=== PATIENT | male | born 1945 | race Caucasian/White ===

== ENCOUNTER 2017-06-20 13:26 | Day surgery (SDC) | payer MEDICARE ==
[2017-06-20 13:58] VITALS: BP 119/64; TEMP 97.6
[2017-06-20] MEDS ORDERED: Ondansetron HCl/PF 4 MG/2 ML Vial SLOW IVP SCH (14:00)
[2017-06-20] MEDS ORDERED: Pemetrexed 1,000 MG in Sodium Chloride 0.9% 60 ML IVPB SCH (14:00)
[2017-06-20] MEDS ORDERED: Sodium Chloride 0.9% 30 ML ONE (14:08)
== END 2017-06-20 15:57 | disposition home or self-care (01) ==
LOC: ONC/OP 13:26
PROVIDERS: ATTEND Internal Medicine Hematology & Oncology
DX: Z51.11 Encounter for antineoplastic chemotherapy (principal); C34.90 Malignant neoplasm of unspecified part of unspecified bronchus or lung; K21.9 Gastro-esophageal reflux disease without esophagitis; I25.2 Old myocardial infarction; J44.9 Chronic obstructive pulmonary disease, unspecified; Z88.5 Allergy status to narcotic agent; Z87.891 Personal history of nicotine dependence; Z79.52 Long term (current) use of systemic steroids; Z79.899 Other long term (current) drug therapy; Z98.890 Other specified postprocedural states
CPT/HCPCS: 96375; 96413; A4216; J2405; J7050; J9305

== ENCOUNTER 2017-07-18 12:40 | Day surgery (SDC) | payer MEDICARE ==
[2017-07-18] MEDS ORDERED: Sodium Chloride 0.9% 40 ML ONE (12:54)
[2017-07-18] MEDS ORDERED: ADMIXTURE FEE IVPB SCH ×2 (13:00→13:15)
[2017-07-18] MEDS ORDERED: SODIUM CHLORIDE IVPB SCH ×2 (13:00→13:15)
[2017-07-18] MEDS ORDERED: PEMETREXED IVPB SCH ×2 (13:00→13:15)
[2017-07-18] MEDS ORDERED: Ondansetron HCl/PF 4 MG/2 ML Vial IVP SCH (13:00)
[2017-07-18] MEDS ORDERED: Cyanocobalamin 1000 MCG/ML VIAL SC SCH (13:00)
== END 2017-07-18 15:40 | disposition home or self-care (01) ==
LOC: ONC/OP 12:40
PROVIDERS: ATTEND Internal Medicine Hematology & Oncology
DX: Z51.11 Encounter for antineoplastic chemotherapy (principal); C34.90 Malignant neoplasm of unspecified part of unspecified bronchus or lung; C79.71 Secondary malignant neoplasm of right adrenal gland; C77.2 Secondary and unspecified malignant neoplasm of intra-abdominal lymph nodes; C79.89 Secondary malignant neoplasm of other specified sites; K21.9 Gastro-esophageal reflux disease without esophagitis; E53.9 Vitamin B deficiency, unspecified; J44.9 Chronic obstructive pulmonary disease, unspecified; I25.2 Old myocardial infarction; Z79.01 Long term (current) use of anticoagulants; Z79.899 Other long term (current) drug therapy; Z88.5 Allergy status to narcotic agent; Z87.891 Personal history of nicotine dependence
CPT/HCPCS: 80053; 82248; 83615; 84100; 84550; 96372; 96375; 96413; A4216; J1642; J2405; J3420; J7050; J9305

== ENCOUNTER 2017-08-15 14:12 | Day surgery (SDC) | payer MEDICARE ==
[2017-08-15] MEDS ORDERED: Ondansetron 2MG/ML MDV 10 MG in Sodium Chloride 0.9% 50 ML IVP SCH (14:45)
[2017-08-15] MEDS ORDERED: Dexamethasone 4 MG TAB PO SCH (14:45)
[2017-08-15] MEDS ORDERED: Pemetrexed 1,000 MG in Sodium Chloride 0.9% 60 ML IVPB SCH (14:45)
[2017-08-15 15:01] VITALS: BP 110/58; TEMP 97.6
== END 2017-08-15 18:22 | disposition home or self-care (01) ==
LOC: ONC/OP 14:12
PROVIDERS: ATTEND Internal Medicine Hematology & Oncology
DX: Z51.11 Encounter for antineoplastic chemotherapy (principal); C34.90 Malignant neoplasm of unspecified part of unspecified bronchus or lung; C79.71 Secondary malignant neoplasm of right adrenal gland; C77.2 Secondary and unspecified malignant neoplasm of intra-abdominal lymph nodes; K21.9 Gastro-esophageal reflux disease without esophagitis; I25.2 Old myocardial infarction; J44.9 Chronic obstructive pulmonary disease, unspecified; Z88.5 Allergy status to narcotic agent; Z79.899 Other long term (current) drug therapy; Z98.890 Other specified postprocedural states; Z80.1 Family history of malignant neoplasm of trachea, bronchus and lung
CPT/HCPCS: 96375; 96413; J2405; J7050; J8540; J9305

== ENCOUNTER 2017-09-09 08:31 | Outpatient (CLI) | payer MEDICARE ==
--- NOTE | 2017-09-09 12:24 | CT ---
CONTRAST ENHANCED CT IMAGES CHEST: COMPARISON: Comparison is made to previous biopsy CT of the right kidney from biopsy from 01/10/14. Comparison co ntrast-enhanced CT of the chest is not available otherwise. FINDINGS: Contrast-enhanced CT of the chest demonstrates a right jugular MediPort catheter in place. ACDF plat es and screws seen in the lower cervical spine. Extensive emphysematous changes seen in both upper lobes. Some emphysematous change is also seen in both lung bases. The mediastinum is unremarkable. Coronary artery calcifications are seen. No significant evidence of pulmonary parenchymal metastases seen. Small areas of nodular pleural calcifications are seen in the left lung base. The spleen contains some splenic calcifications compatible with granulomas. There is an approximately 1.4 x 1.0 cm area of soft tissue partial enhancement in the posterior aspec t of the gallbladder. This may represent possible gallbladder mass. A prominent cystic artery is se en. The liver is otherwise unremarkable. Extensive heterogeneity is seen in the upper pole of the right kidney compatible with a right renal mass. Please see biopsy of this area from 01/08/14. There is al so an approximately 3.4 x 3.4 cm area of heterogeneity involving the left adrenal gland. This was no t present on the previous comparison CT and may represent a newly developed left adrenal mass. IMPRESSION: 1. Newly developed left adrenal mass. 2. Area of soft tissue density along the posterior aspect of the gallbladder concerning for possible gallbladder neoplasm. 3. Continued area of soft tissue density in the upper pole of the right kidney possibly representing a right renal lesion. 4. Left lung base pleural-based area of lung calcification with soft tissue component seen on image E52 of the left lung base. 5. Ill-defined soft tissue lesion in the left upper lobe posterolaterally, diameter measuring approx imately 11 mm seen on image #41. POS: [facility]
[2017-09-09] MEDS ORDERED: Iopamidol 370 76% 100 ML VIAL ONE (12:57)
== END 2017-09-09 08:32 | disposition home or self-care (01) ==
LOC: CT 08:31
PROVIDERS: ATTEND Internal Medicine Hematology & Oncology
DX: C34.90 Malignant neoplasm of unspecified part of unspecified bronchus or lung (principal); J98.4 Other disorders of lung; E27.8 Other specified disorders of adrenal gland
CPT/HCPCS: 71260; 82565

== ENCOUNTER 2017-09-12 12:48 | Day surgery (SDC) | payer MEDICARE ==
[2017-09-12] MEDS ORDERED: Sodium Chloride 0.9% 40 ML ONE (12:57)
[2017-09-12 13:03] VITALS: BP 142/69; TEMP 97.5
[2017-09-12] MEDS ORDERED: ADMIXTURE FEE IVPB SCH ×2 (13:15)
[2017-09-12] MEDS ORDERED: Ondansetron HCl/PF 4 MG/2 ML Vial IVP SCH (13:15)
[2017-09-12] MEDS ORDERED: SODIUM CHLORIDE IVPB SCH ×2 (13:15)
[2017-09-12] MEDS ORDERED: PEMETREXED IVPB SCH ×2 (13:15)
== END 2017-09-12 14:25 | disposition home or self-care (01) ==
LOC: ONC/OP 12:48
PROVIDERS: ATTEND Internal Medicine Hematology & Oncology
DX: Z51.11 Encounter for antineoplastic chemotherapy (principal); C34.90 Malignant neoplasm of unspecified part of unspecified bronchus or lung; R11.2 Nausea with vomiting, unspecified; E53.9 Vitamin B deficiency, unspecified; J44.9 Chronic obstructive pulmonary disease, unspecified; I25.2 Old myocardial infarction; K21.9 Gastro-esophageal reflux disease without esophagitis; Z88.5 Allergy status to narcotic agent
CPT/HCPCS: 96375; 96413; A4216; J1642; J2405; J7050; J9305

== ENCOUNTER 2017-09-26 08:27 | Outpatient (CLI) | payer MEDICARE ==
--- NOTE | 2017-09-26 15:07 | PET ---
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 COMPARISON: Prior PET CT evaluation dated 01/26/[address] of the chest dated 09/09/17. TECHNIQUE: PET CT images were obtained from the skull base through the mid thigh after administration of 16.56 m Ci of F18-FDG IV. CT images were obtained for attenuation correction purposes only. FINDINGS: Biodistribution for the examination is acceptable. HEAD AND NECK: No hypermetabolic lymphadenopathy or mass is seen within the head and neck region. There is some mil d uptake seen within the salivary glands which is likely related to background activity. THORAX: No hypermetabolic lymphadenopathy, pulmonary nodule, or pleural effusion is demonstrated. There is a small sub-4 mm pulmonary nodule left upper lobe that has been stable since 2014. There is severe em physema. ABDOMEN AND PELVIS: The hypermetabolic mass involving the right adrenal gland is smaller than on the comparison of 2013. The lesion now measures 9.6 cm and the peak SUV uptake of 17.0 for a mean uptake of 12.78. The maxi mum uptake on the prior exam was 6.36 with a mean value of 5.5. There is a new lesion involving the medial limb of the left adrenal gland measuring 3.4 cm with a max imum uptake of 7.86 and a mean uptake of 3.98. The previously seen retroperitoneal hypermetabolic masses noted on the prior PET examination are no l onger demonstrated. There is calcified granuloma within the spleen. There are also layered densitie s within the gallbladder. SKIN AND OSSEOUS STRUCTURES: No hypermetabolic skin or osseous lesion is identified. IMPRESSION: Abnormal PET CT. 1. Previously seen hypermetabolic lymphadenopathy within the posterior mediastinum and retroperitone um have resolved since the comparison in 2013; however, there has been interval development of a hype rmetabolic lesion now within the medial limb of the left adrenal gland. The previously seen hypermet abolic mass involving the right adrenal gland has decreased in size since 2014 but does demonstrate m ore avid FDG uptake as indicated in the report. 2. Cholelithiasis and findings of prior granulomatous disease. 3. Emphysema. POS: [facility]
== END 2017-09-26 08:28 | disposition home or self-care (01) ==
LOC: PET 08:27
PROVIDERS: ATTEND Internal Medicine Hematology & Oncology
DX: C34.90 Malignant neoplasm of unspecified part of unspecified bronchus or lung (principal); J43.9 Emphysema, unspecified; K80.20 Calculus of gallbladder without cholecystitis without obstruction; D71 Functional disorders of polymorphonuclear neutrophils; E27.8 Other specified disorders of adrenal gland
CPT/HCPCS: 78815; A9552

== ENCOUNTER 2018-02-06 12:16 | Outpatient (CLI) | payer MEDICARE ==
--- NOTE | 2018-02-06 16:24 | PET ---
PET CT FROM SKULL BASE THROUGH MID THIGHS: INDICATION: History of lung cancer and metastatic disease. COMPARISON: Prior PET CT dated 09/26/17. TECHNIQUE: Multiple PET CT images were obtained from the skull base through the mid thighs following IV administ ration of 11.4 mCi F18-FDG IV. CT images were obtained for attenuation correction purposes only. FINDINGS: The biodistribution for the examination appears acceptable. Head/Neck: No hypermetabolic lymphadenopathy or mass is identified. Thorax: No hypermetabolic pulmonary nodule or pleural effusion is evident. There is severe emphysema. There a re new areas of reticulonodularity within the right upper lobe, best seen on axial CT image 94. These have some mild increased activity related to them, but none are hypermetabolic. There is scattered s carring throughout both lungs. No hypermetabolic lymphadenopathy is seen within the mediastinum, anny r, or axillary regions. Abdomen/Pelvis: The right adrenal mass is smaller, now measuring 3.6 cm in its greatest axial dimension, whereas prev iously the mass measured 9.6 cm and now measures 3.6 cm. No hypermetabolic activity is associated wit h the mass. There has been resolution of the hypermetabolic activity involving the left adrenal body seen on the prior exam. There is a residual nodule noted within the left adrenal body measuring 1.5 c m. No new hypermetabolic lymphadenopathy or mass is identified. There are layered gallstones within t he gallbladder. There are calcified granulomas within the spleen. No malignant ascites is present. Skin/Osseous Structures: No hypermetabolic skin or osseous lesion is evident. IMPRESSION: 1. Findings consistent with response to therapy. There has been resolution of the hypermetabolic act ivity involving the bilateral adrenal masses. No hypermetabolic lymphadenopathy is evident. No hyperm etabolic pulmonary nodules are demonstrated. 2. New reticulonodular opacities within the right upper lobe without associated hypermetabolic activ ity. Findings are suspicious for bronchiolitis; however, early metastatic disease cannot be entirely excluded. Would recommend short-term CT follow-up to document resolution. CODE T. POS: [facility]
== END 2018-02-06 12:17 | disposition home or self-care (01) ==
LOC: PET 12:16
PROVIDERS: ATTEND Internal Medicine Hematology & Oncology
DX: C34.90 Malignant neoplasm of unspecified part of unspecified bronchus or lung (principal); E27.9 Disorder of adrenal gland, unspecified; R91.8 Other nonspecific abnormal finding of lung field
CPT/HCPCS: 78815; A9552

== ENCOUNTER 2018-05-27 15:20 | Emergency (ER) | payer MEDICARE ==
[2018-05-27] MEDS ORDERED: Morphine 4 MG/ML VIAL ONE (16:14)
[2018-05-27] MEDS ORDERED: cefTRIAXone\\ROCEPHIN 1 GM VIAL ONE (16:14)
[2018-05-27 17:29] LABS: Bilirubin Negative (Negative); Blood, Urine Large (Negative); Clarity CLEAR (Clear); Glucose, Urine (Dipstick) Negative (Negative); Leukocyte Trace (Negative); Nitrite Negative (Negative); Protein, Urine (Dipstick) 30 mg/dL (Neg-Trace); Specific Gravity, Urine 1.013 (1.002-1.036); Urobilinogen 0.2 mg/dL (0.2-1.0)
[2018-05-27 17:34] LABS: Bacteria/HPF None Seen HPF (None Seen); Hyaline Casts/LPF 0-3 HYALINE CAST LPF (0-3 Hyaline); Pathc Cast-AUWi Flag 0.43 (0-2.49); RBC/HPF GREATER THAN 50-TNTC HPF (0-3); Squamous Epithelial 0-3 HPF (0-3)
[2018-05-27 17:41] LABS: Amphetamine Not Detected (NotDetected); Barbiturates Screen Not Detected (NotDetected); Benzodiazepine Screen Not Detected (NotDetected); Cocaine Metabolite Screen Not Detected (NotDetected); Medtox Control Line Valid? VALID (VALID); Medtox Reader # READER 4; Methadone Not Detected (NotDetected); Methamphetamine Not Detected (NotDetected); Opiate Screen Not Detected (NotDetected); Oxycodone Screen Not Detected (NotDetected); Phencyclidine (PCP) Not Detected (NotDetected); THC/Cannabinoid Screen Not Detected (NotDetected); Tricyclic Screen Not Detected (NotDetected)
[2018-05-27 18:00] LABS: Crystals/HPF None Seen HPF (Negative); Oval Fat Bodies/HPF None Seen HPF (None Seen); Renal Epithelial 0-3 HPF (0-3); Transitional Epithelial NONE SEEN HPF (0-3); Trichomonas/HPF None Seen HPF (None Seen)
--- NOTE | 2018-05-28 05:01 | CON ---
DATE OF CONSULTATION: 05/27/2018 HISTORY OF PRESENT ILLNESS: The patient was consulted for urinary retention and unable to place a catheter. The patient was transferred from an outside facility for stricture or cause for this being an acute retention. The patient had this 4 years ago, had a similar procedure done at [facility] and then ultimately has his own urologist, Dr. Almanza at [facility]. He has been on tamsulosin and finasteride for several years and has been screened for prostate cancer where he had concerns for this previously. He has not had any concerns for urinary tract infection or blood in the urine recently. He has no history of stones. PAST MEDICAL HISTORY: Metastatic lung can, coronary artery disease with an PA in 2008, hypertension, high cholesterol, GERD. PAST SURGICAL HISTORY: Surgeries include neck fusion, bilateral inguinal hernias, and cardiac stent in 2008, port MEDICATIONS: Include: 1. Tamsulosin. 2. Finasteride. 3. Simvastatin. 4. Omeprazole. 5. Xarelto. 6. Multivitamin. 7. Vitamin C. 8. Vitamin B12. 9. He is also receiving chemotherapy for his metastatic lung cancer ALLERGIES: CODEINE, HE SAYS IT HALLUCINATES. REVIEW OF SYSTEMS: Reveals he had a colonoscopy in 2013 that showed polyps, so it is likely due again. He does have trouble with his bowels, but is not currently constipated. He has some intermittent shortness of breath, not anything currently. No chest pain. No nausea or vomiting. He has abdominal pain in the abdomen just because of not being able to urinate. It was not bloody until after they attempted catheters. SOCIAL HISTORY: Reveals he quit smoking 25 years ago and prior had 20- to 30- year pack history. He drinks beer, but not daily. He uses no other drugs. FAMILY HISTORY: Mother of lung cancer at 87. Father of metastatic lung cancer at 83, both smoked. PHYSICAL EXAMINATION: GENERAL: He is uncomfortable in the bed, so actually did the procedure to get the catheter in prior to doing the history and physical. HEENT: He has poor dentition. Concerns for slight jaundice in color. VITAL SIGNS: Temperature 97.8, heart rate 102, blood pressure 98/71, respiratory rate 20, saturating 96% on room air. HEART: Regular rate and rhythm. No murmurs, gallops, or rubs. LUNGS: Clear to auscultation with fine rhonchi noted intermittently. The port was noted under his gaunt chest skin. ABDOMEN: Soft, nondistended, nontender with normoactive bowel sounds. GENITALS: Testes were descended bilaterally without masses. Phallus was circumcised without lesions. There was significant blood all around it. He had no left lower extremity edema compared to right and this has been unchanged for sometime. Procedure was required in order to place the catheters, so he was prepped using an 18-Nepalese flexible cystoscope. Significant trauma was noted in false passages and then I had to backup again and see a very small stricture that was noted. Next, a false passage and wire were able to get beyond the stricture and into the bladder and then this was dilated using Bard urethral dilators intermittently from 10- Nepalese to 22-Nepalese, and then an 18-Nepalese catheter was placed over the wire without difficulty for yellow urine return. This was sent for specimen. This was secured to the patient's leg and the knee was cleaned. LABORATORY VALUES: Reveals H and H of 12.7 and 39.0 with a normal WBC of 9.0, and platelets of 167. His coags were not checked. His chemistry reveals a creatinine of 1.22 and his baseline is around 1 and he has PSA from 2014 that was 1.07. Urine from 2014 had wbc's and rbc's, but no bacteria, so I suspect this is when they were also placing the catheter for retention and stricture. I have no imaging. ASSESSMENT: We have a 72-year-old male with urinary retention secondary to urethral stricture, which is recurrent. We reviewed how he can follow up with Dr. Almanza, but I would not removed the catheter for at least 7 days. I would continue tamsulosin and finasteride, and I do recommend adequate hydration and a course of antibiotics. He will call Dr. Almanza's office tomorrow to come up with the plan. Job ID: [id number] [facility]
== END 2018-05-27 18:08 | disposition home or self-care (01) ==
LOC: ERS 15:20
DX: N13.9 Obstructive and reflux uropathy, unspecified (principal); Z87.891 Personal history of nicotine dependence
CPT/HCPCS: 51702; 80306; 81003; 81015; 96365; 96375; J0696; J2270

== ENCOUNTER 2018-07-17 09:35 | Outpatient (CLI) | payer MEDICARE ==
--- NOTE | 2018-07-17 12:25 | PET ---
PET CT: COMPARISON: PET CT dated 02/06/18 and 09/26/17. CT chest dated 09/09/17 and 06/16/15. HISTORY: Lung cancer. History of retroperitoneal and adrenal masses\. TECHNIQUE: A PET CT was performed from skull base through the mid thigh after administration of 12.1 mCi of F18- FDG. FINDINGS: No suspicious areas of hypermetabolic activity are seen within the chest. The previously seen area of tree-in-bud opacity in the right upper lobe has resolved and likely represented a bronchiolitis. No hypermetabolic or suspicious activity is seen in the neck or chest. The previously seen left adrenal nodule has significantly decreased in size and is no longer hypermet abolic. The previously seen mass involving the right adrenal gland and right kidney is still present and difficult to fully discriminate from the kidney without IV contrast. Hypermetabolic activity is s een in the upper pole of the right kidney, but this could represent normal renal function versus resi dual disease. However, residual disease in this location cannot be excluded as the max SUV value in t his region is 12.4. No other suspicious areas of hypermetabolic activity are seen within the abdomen or pelvis. No suspic ious areas of hypermetabolic activity are seen within the skeleton. CT images used for attenuation correction shows a gallstone in the gallbladder. There are calcified g ranulomas in the spleen. Atherosclerotic calcifications are seen in the aorta. IMPRESSION: The right adrenal/renal lesion involving the upper pole of the right kidney is still present on the n onattenuating corrected images. Hypermetabolic activity is still seen in this region. This could repr esent normal hypermetabolic activity in the kidney or a lesion involving the residual disease in this location involving the adrenal gland and right kidney. POS: [facility]
== END 2018-07-17 09:36 | disposition home or self-care (01) ==
LOC: PET 09:35
PROVIDERS: ATTEND Internal Medicine Hematology & Oncology
DX: C34.90 Malignant neoplasm of unspecified part of unspecified bronchus or lung (principal); R94.8 Abnormal results of function studies of other organs and systems
CPT/HCPCS: 78815; A9552

== ENCOUNTER 2018-09-22 12:36 | Observation (INO) | payer MEDICARE ==
[~2018-09-22 12:36] MED LIST: ISOVUE-370 76%-LOCM 1 ML ONE
[2018-09-22 13:15] LABS: #Basophils 0.1 thou/uL (0.0-0.2); #Eosinphils 0.5 thou/uL (0.0-0.7); #Lymphocytes 3.6 thou/uL (1.20-3.40); #Monocytes 1.3 thou/uL (0.11-0.59); #Neutrophils 10.6 thou/uL (1.40-6.50); %Basophils 0.7 % (0.0-1.0); %Eosinophils 3.2 % (0.0-10.0); %Lymphocytes 22.1 % (21.0-51.0); %Monocytes 8.1 % (0.0-10.0); Hemoglobin 12.4 g/dL (14.0-18.0); Mean Corpuscular HGB CONC 32.1 g/dL (32.0-36.0); Mean Corpuscular Hemoglobin 27.9 pg (27.0-31.0); Mean Corpuscular Volume 87.1 fL (78.0-98.0); Mean Platelet Volume 8.4 fL (7.4-10.4); Platelet Count 245 thou/uL (130-400); RBC Distribution Width 14.8 % (11.5-14.5); Red Blood Cell (RBC) Count 4.45 mill/uL (4.70-6.10); White Blood Cell (WBC) Count 16.1 thou/uL (4.8-10.8)
[2018-09-22] MEDS ORDERED: Ondansetron PF 4 MG/2 ML Vial ONE (13:31)
[2018-09-22] MEDS ORDERED: Morphine 4 MG/ML VIAL ONE (13:31)
[2018-09-22 13:38] LABS: Anion Gap 15 mmol/L (10-20); BUN (Urea Nitrogen) 28 mg/dL (8.4-25.7); Calc. Creatinine Clearance 0 mL/min (70-130); Calcium 8.9 mg/dL (7.8-10.44); Carbon Dioxide 21 mmol/L (23-31); Chloride 100 mmol/L (98-107); Estimated GFR-MDRD 54; Glucose 93 mg/dL (83-110); Potassium 4.4 mmol/L (3.5-5.1); Sodium 132 mmol/L (136-145)
[2018-09-22 14:35] LABS: Bilirubin Negative (Negative); Blood, Urine Large (Negative); Clarity TURBID (Clear); Glucose, Urine (Dipstick) Negative (Negative); Leukocyte Small (Negative); Nitrite Negative (Negative); Protein, Urine (Dipstick) 100 mg/dL (Neg-Trace); Specific Gravity, Urine 1.021 (1.002-1.036); Urobilinogen 0.2 mg/dL (0.2-1.0)
[2018-09-22 14:36] LABS: Pathc Cast-AUWi Flag 2.12 (0-2.49); RBC/HPF GREATER THAN 50-TNTC HPF (0-3)
[2018-09-22 14:42] LABS: Hyaline Casts/LPF 0-3 HYALINE CAST LPF (0-3 Hyaline); Renal Epithelial None Seen HPF (0-3); Transitional Epithelial NONE SEEN HPF (0-3)
[2018-09-22 14:43] LABS: Bacteria/HPF 2+ HPF (None Seen)
[2018-09-22] MEDS ORDERED: Ondansetron PF 4 MG/2 ML Vial IVP PRN (14:57)
[2018-09-22] MEDS ORDERED: Bisacodyl 10 MG SUPP PR PRN (14:57)
[2018-09-22] MEDS ORDERED: Senokot S 8.6-50 MG TAB PO PRN (14:57)
[2018-09-22] MEDS ORDERED: Guaifenesin DM 100-10/5 ML UDCUP PO PRN (14:57)
[2018-09-22] MEDS ORDERED: cefTRIAXone\\ROCEPHIN 2 GM VIAL ONE (15:41)
[2018-09-22 16:27] VITALS: BMI 20.7
[2018-09-22] MEDS: Sodium Chloride 0.9% 1,000 ML IV SCH (17:06)
--- NOTE | 2018-09-22 17:06 | HP ---
REASON FOR ADMISSION: Hematuria. HISTORY OF PRESENTING ILLNESS: The patient gives history of noticing blood running down his legs when he was trying to pass urine in the bathroom this morning. He normally does self catheterization 2 times a day. He managed to do it and emptied his bladder, but had bloody urine. There was also clots in it. He states he has been taking Xarelto for the last 5 years, for risk of clots with history of renal tumor. He mentions that he has been off chemo and immunotherapy from last 4 months as the tumor spread. He is currently on a carbohydrate-restricted diet along with beet juice, iodine tablets, and Restart powder, for which he is seeing Lee Valverde for holistic therapy of his cancer. No complaints of fever. No history of increased frequency of urination yesterday. No cough or expectoration. Lives with his . Ambulates with a walker. PAST MEDICAL AND SURGICAL HISTORY: 1. History of adenoca lung with adrenal mets. The patient has been on octiva and finally Opdivo, none of which apparently has helped him. He was also on [place]-based chemotherapy initially. 2. Coronary artery disease with prior stent, bilateral inguinal hernia repair, cervical spine surgery. A cardiac stent was placed 12 years ago. He is on Xarelto for the last 5 years for risk of DVT with history of ?kidney tumor. The patient had a PET scan done in June of 2018, which showed right adrenal/renal lesion involving upper pole of the right kidney is still present. There is a MediPort placed in August 2015 for history of lung cancer. Adenocarcinoma lung with metastasis to right adrenal gland and retroperitoneal lymph node. CURRENT MEDICATIONS: The patient takes; 1. Xarelto 15 mg p.o. daily. 2. Proscar 5 mg daily. 3. Flomax 0.4 mg twice daily. 4. Lugol's iodine tablet daily. 5. Vitamin C daily. 6. B12 daily. 7. Iron tablets daily. 8. Drinks green tea along with [employer] multivitamin tab. The patient goes to [facility] at [place]. ALLERGIES: TO CODEINE. PERSONAL HISTORY: Quit smoking 15 years back prior to which has smoked 1 pack a day for nearly 40 years. Does not abuse alcohol or drugs. Lives with his . FAMILY HISTORY: Mother at the age of 87 years. Father at the age of 83 years. He has had history of lung cancer with metastasis to brain. The patient normally ambulates with a walker. CODE STATUS: Full. Power of assistant city attorney is his . REVIEW OF SYSTEMS: CONSTITUTIONAL: Negative for weight loss or gain, ability to conduct usual activities. SKIN: Negative for rash, itching. EYES: Negative for double vision, pain. ENT/MOUTH: Negative for nose bleeding, neck stiffness, pain, tenderness. CARDIOVASCULAR: Negative for palpitations, dyspnea on exertion, orthopnea. RESPIRATORY: Negative for shortness of breath, wheezing, cough, hemoptysis, fever or night sweats. GASTROINTESTINAL: Negative for poor appetite, abdominal pain, heartburn, nausea , vomiting, constipation, or diarrhea. GENITOURINARY: Negative for urgency, frequency, dysuria, nocturia. MUSCULOSKELETAL: Negative for pain, swelling. NEUROLOGIC/PSYCHIATRIC: Negative for anxiety, depression. ALLERGY/IMMUNOLOGIC: Negative for skin rash, bleeding tendency. PHYSICAL EXAMINATION: GENERAL: The patient is a 73-year-old male, who is currently not in any acute distress. VITAL SIGNS: Blood pressure 124/76, pulse 100 per minute, respiratory rate 18 per minute, temperature 98 degrees Fahrenheit, and saturating 96% on room air. NECK: Supple. No elevated JVD. HEENT: Eyes; extraocular muscles intact. Pupils reacting to light. Oral cavity, mucous membranes are dry. No exudates or congestion. CARDIOVASCULAR SYSTEM: S1-S2 heard. Regular rhythm. RESPIRATORY SYSTEM: Air entry 1+ bilateral. No rales or rhonchi. ABDOMEN: Soft. Bowel sounds heard. He has right lower quadrant abdominal mass , which is tender to palpation. No rigidity or guarding, has localized tenderness in the right lower quadrant. EXTREMITIES: No peripheral edema or calf tenderness. VASCULAR SYSTEM: Peripheral pulses 1+ bilateral. No ischemic ulcerations or gangrene. CENTRAL NERVOUS SYSTEM: No gross focal deficits noted. The patient is alert, awake, and oriented well. PSYCHIATRIC SYSTEM: The patient's mood is euthymic. No hallucinations or delusions. LABORATORY DATA: White count of 16, H and H 12 and 38, and platelet count 245, with 66% neutrophils. Serum bicarb 21, BUN 28, and creatinine 1.3. CLINICAL IMPRESSION AND PLAN: The patient will be under observation on medical floor for hematuria. He is also on Xarelto, which will be held. The last dose he took was yesterday evening. He does self catheterization 2 times a day and it is unclear if he has any catheter related injury. Also, the patient has known metastasis to his adrenal glands from his lung cancer, adenocarcinoma of lung. It is unclear if this has grown and caused the bleeding. We will obtain consultation with Dr. Archie Duran, his urologist. He will be gently hydrated with normal saline. He has had a Aguayo catheter placed and likely will have bladder irrigation per Urology advice. We will hold the Xarelto for now. We will continue his Proscar and Flomax for now. The patient has been taking Lugol's iodine from last month and a half and we will obtain free T3, free T4 and TSH in the morning. He has moved into holistic medicine from last 2.5 months or so and sees Dr. Lee Valverde, who is a dietary specialist for his lung cancer with metastasis per patient and family. He is on a fully restricted carbohydrate diet along with multiple supplements. Code status is full. This was discussed with the patient and at bedside. Job ID: [id number] [facility]
--- NOTE | 2018-09-22 19:08 | CON ---
DATE OF CONSULTATION: CHIEF COMPLAINT: Gross hematuria. HISTORY OF PRESENT ILLNESS: Mr. Ley is a 73-year-old gentleman, who has metastatic lung cancer. This was diagnosed on a CT scan of the abdomen and pelvis demonstrates a large right-sided probable adrenal metastases. Biopsy confirmed findings consistent with metastases and primary thought to be a lung primary. This was diagnosed in 2013. He has received chemotherapy along with immunotherapy. There is some evidence of recent progression of the cancer. He is now trying some holistic approaches. The patient also has urologic problems with retention. He has currently been managing with intermittent catheterization twice a day. During last visit to the hospital, he required cystoscopic placement of a Aguayo catheter because of false passage during prior catheter placement. Today, he presents to the emergency room with gross hematuria. This occurred after he placed his Aguayo catheter. He had not been having gross hematuria prior. He has been taking Xarelto. PAST MEDICAL HISTORY: COPD, coronary artery disease, metastatic lung cancer, BPH, urethral stricture disease, and recurrent urinary retention. PAST SURGICAL HISTORY: Biopsy right adrenal mass, cardiac stent placement, and MediPort placement. CHRONIC MEDICATIONS: 1. Xarelto. 2. Proscar. 3. Flomax. 4. Vitamins. ALLERGIES: CODEINE. SOCIAL HISTORY: Quit smoking 15 years ago, but was a pack-a-day smoker. Prior denies excessive alcohol use. FAMILY HISTORY: Significant for longevity in his parents, both father and mother lived into their 80s. REVIEW OF SYSTEMS: RESPIRATORY: No shortness of breath. CARDIOVASCULAR: No chest pain or palpitations. GASTROINTESTINAL: Denies chronic constipation or diarrhea. GENITOURINARY: Please see history of present illness. MUSCULOSKELETAL: He ambulates with a walker, but denies current pain or swelling in the lower extremities. NEUROLOGIC/PSYCHIATRIC: Negative for anxiety or depression. PHYSICAL EXAMINATION: GENERAL: He is awake and alert. He is in no distress at this time. VITAL SIGNS: Blood pressure 124/76, pulse 100, and respiratory rate 18. NECK: Supple without masses. CHEST: Clear to auscultation. CARDIOVASCULAR: No murmurs auscultated. ABDOMEN: Soft and nontender. No palpable masses. Liver and spleen not palpable. No abdominal tenderness. Aguayo catheter 16-Maori with temperature probe was removed. A Aguayo catheter 16-Maori [place] tip placed and hand irrigated. Several small clots were obtained. As these were obtained, hand irrigation revealed clear influx. Catheter placed to gravity. IMPRESSION: Gross hematuria, most likely from catheter trauma, although he has had cisplatin based chemotherapy in the past and makes a chemical cystitis also possible. Aguayo catheter has been left in place. The urine is clear can be removed at your convenience. Further urologic recommendations none. Job ID: [id number]
--- NOTE | 2018-09-22 20:34 | CT ---
CONTRAST ENHANCED CT IMAGES OF ABDOMEN AND PELVIS: HISTORY: Hematuria. IV and oral contrast was given. Comparison made to previous CT of chest from 09/09/2017. FINDINGS: The lung bases are unremarkable. No evidence of free intraperitoneal air seen. The liver is unremarkable. The spleen is unremarkable except for some calcified granulomas. The gallb ladder again contains a an 8 mm enhancing lesion most compatible with a gallbladder mass or polyp. The pancreas is unremarkable. Previously noted left adrenal mass appears to have significantly decreased in size. Again, an ill-defined mass is seen in the upper pole of the right kidney. This appears to have slight ly increased in size. Could this be the cause of the patient's hematuria? Mildly dilated loops of small bowel seen. The colon is grossly unremarkable. Indwelling Aguayo catheter is in place. There is abnormal thickening of the urinary bladder. Could thi s represent cystitis or bladder neoplasm? Correlate with direct visualization. IMPRESSION: Heterogeneous upper pole right renal mass. Transcribed Date/Time: 09/22/2018 8:38 PM
[2018-09-22] MEDS: Famotidine 20 MG TAB PO SCH (20:45)
[2018-09-22] MEDS: Finasteride 5 MG TAB PO SCH (20:45)
[2018-09-22] MEDS: Tamsulosin HCl 0.4 MG CAP PO SCH (20:45)
[2018-09-23] MEDS: Acetaminophen 325 MG TAB PO PRN ×2 (03:25→15:03)
[2018-09-23 05:51] LABS: #Basophils 0.1 thou/uL (0.0-0.2); #Eosinphils 0.8 thou/uL (0.0-0.7); #Monocytes 1.1 thou/uL (0.11-0.59); #Neutrophils 7.9 thou/uL (1.40-6.50); %Basophils 0.4 % (0.0-1.0); %Eosinophils 5.9 % (0.0-10.0); %Lymphocytes 23.6 % (21.0-51.0); %Monocytes 8.4 % (0.0-10.0); %Neutrophils 61.7 % (42.0-75.0); Hemoglobin 10.5 g/dL (14.0-18.0); Mean Corpuscular Volume 87.4 fL (78.0-98.0); Mean Platelet Volume 9.5 fL (7.4-10.4); Platelet Count 191 thou/uL (130-400); RBC Distribution Width 14.8 % (11.5-14.5); Red Blood Cell (RBC) Count 3.76 mill/uL (4.70-6.10); White Blood Cell (WBC) Count 12.8 thou/uL (4.8-10.8)
[2018-09-23 06:12] LABS: Anion Gap 13 mmol/L (10-20); BUN (Urea Nitrogen) 25 mg/dL (8.4-25.7); Calc. Creatinine Clearance 49 mL/min (70-130); Carbon Dioxide 19 mmol/L (23-31); Chloride 104 mmol/L (98-107); Estimated GFR-MDRD 58; Glucose 94 mg/dL (83-110); Potassium 4.1 mmol/L (3.5-5.1); Sodium 132 mmol/L (136-145)
[2018-09-23 06:33] LABS: Free T4 (Free Thyroxine) 0.78 ng/dL (0.70-1.48); Thyroid Stimulating Hormone 2.5149 uIU/mL (0.35-4.94)
[2018-09-23 08:36] LABS: INR-International Normal Ratio 1.5; PTT 60.6 SEC (22.9-36.1); Prothrombin Time 18.1 SEC (12.0-14.7)
[2018-09-23] MEDS ORDERED: Sodium Chloride 0.9% 500 ML IV SCH (10:00)
[2018-09-23] MEDS: Famotidine 20 MG TAB PO SCH ×2 (10:13→20:33)
[2018-09-23] MEDS: Multivitamin W/ Minerals 1 TAB PO SCH (10:13)
[2018-09-23] MEDS: Tamsulosin HCl 0.4 MG CAP PO SCH ×2 (10:14→20:33)
[2018-09-23 14:23] LABS: Hemoglobin 10.9 g/dL (14.0-18.0)
[2018-09-23] MEDS: Sodium Chloride 0.9% 1,000 ML IV SCH (15:00)
[2018-09-23] MEDS ORDERED: Loperamide HCl 2 MG CAP PO PRN (16:32)
[2018-09-23] MEDS: Finasteride 5 MG TAB PO SCH (20:33)
--- NOTE | 2018-09-23 21:51 | PDOC.PN ---
- Subjective Encounter Start Date: 09/23/18 Encounter Start Time: 09:45 Doing ok. No specific complaints. Recounts his course with the chemotherapy and the current holistic approach. Has some struggles with the diet that is devoid of all sugar, including fruit. - Objective Resuscitation Status - Order Detail: 09/22/18 14:53 Resuscitation Status Routine Resuscitation Status: FULL: Full Resuscitation Discussed with: POA: Vital Signs & Weight: Vital Signs (12 hours) Temp Pulse Resp BP BP BP Pulse Ox 09/23/18 20:00 97.9 F 96 16 89/53 L 94 L 09/23/18 15:43 97.9 F 103 H 20 109/63 95 09/23/18 11:58 97.3 F L 87 16 90/53 L 72/50 L 93/54 L 94 L Weight Weight 144 lb 6 oz I&O: 09/22/18 09/23/18 09/24/18 06:59 06:59 06:59 Intake Total 1340 Output Total 1600 10 Balance -260 -10 Result Diagrams: 09/23/18 14:09 09/23/18 04:46 Phys Exam - Physical Examination Constitutional: NAD Respiratory: no wheezing, no rales, no rhonchi, clear to auscultation bilateral Cardiovascular: RRR, no significant murmur, no rub Gastrointestinal: soft, non-tender, no distention Musculoskeletal: no edema Psychiatric: normal affect, A&O x 3 Skin: normal turgor Dx/Plan (1) Hematuria Code(s): R31.9 - HEMATURIA, UNSPECIFIED Status: Acute (2) Renal mass Code(s): N28.89 - OTHER SPECIFIED DISORDERS OF KIDNEY AND URETER Status: Acute (3) Orthostatic hypotension Code(s): I95.1 - ORTHOSTATIC HYPOTENSION Status: Acute (4) Adenocarcinoma of lung Code(s): C34.90 - MALIGNANT NEOPLASM OF UNSP PART OF UNSP BRONCHUS OR LUNG Status: Acute (5) BPH with obstruction/lower urinary tract symptoms Code(s): N40.1 - BENIGN PROSTATIC HYPERPLASIA WITH LOWER URINARY TRACT SYMP; N13.8 - OTHER OBSTRUCTIVE AND REFLUX UROPATHY Status: Acute - Plan * No indication for the xarelto. That is held. * Rechecked his orthostatic BP's and they were positive. * Gave fluid bolus and rechecked his hgb. Hgb is stable and VS did not change with fluids. * Strongly suspect his orthostasis is related to the tamsulosin. * Cannot easily discontinue the Tamsulosin because of severe BPH symptoms and obstruction. * In the afternoon, revisited. He reports that he has had the orthostatic symptoms for a long while. * He has had syncope related to this in the past. * He has learned to get up slowly and avoid falling. * Now has some diarrhea, which is not terribly uncommon for him. * Will give some imodium and reassess in am. * If not ready for discharge in am, will need to consider other options. * He reports he is very weary from dealing with the cancer.
[2018-09-24] MEDS: Acetaminophen 325 MG TAB PO PRN (04:09)
[2018-09-24 05:13] LABS: #Basophils 0.1 thou/uL (0.0-0.2); #Eosinphils 0.8 thou/uL (0.0-0.7); #Lymphocytes 2.5 thou/uL (1.20-3.40); #Monocytes 0.8 thou/uL (0.11-0.59); #Neutrophils 5.5 thou/uL (1.40-6.50); %Basophils 0.9 % (0.0-1.0); %Eosinophils 7.8 % (0.0-10.0); %Lymphocytes 25.8 % (21.0-51.0); %Monocytes 8.3 % (0.0-10.0); %Neutrophils 57.2 % (42.0-75.0); Hemoglobin 10.1 g/dL (14.0-18.0); Mean Corpuscular HGB CONC 31.8 g/dL (32.0-36.0); Mean Corpuscular Hemoglobin 27.9 pg (27.0-31.0); Mean Corpuscular Volume 87.8 fL (78.0-98.0); Mean Platelet Volume 9.4 fL (7.4-10.4); Platelet Count 151 thou/uL (130-400); RBC Distribution Width 14.7 % (11.5-14.5); Red Blood Cell (RBC) Count 3.61 mill/uL (4.70-6.10); White Blood Cell (WBC) Count 9.6 thou/uL (4.8-10.8)
[2018-09-24 05:21] LABS: Anion Gap 10 mmol/L (10-20); BUN (Urea Nitrogen) 23 mg/dL (8.4-25.7); Calc. Creatinine Clearance 52 mL/min (70-130); Calcium 7.6 mg/dL (7.8-10.44); Carbon Dioxide 21 mmol/L (23-31); Chloride 106 mmol/L (98-107); Estimated GFR-MDRD 62; Glucose 96 mg/dL (83-110); Potassium 3.7 mmol/L (3.5-5.1); Sodium 133 mmol/L (136-145)
[2018-09-24 07:41] VITALS: BP 99/58; TEMP 97.6
[2018-09-24] MEDS: Famotidine 20 MG TAB PO SCH (09:30)
[2018-09-24] MEDS: Tamsulosin HCl 0.4 MG CAP PO SCH (09:30)
[2018-09-24] MEDS: Multivitamin W/ Minerals 1 TAB PO SCH (09:30)
--- NOTE | 2018-09-24 10:26 | CON ---
DATE OF CONSULTATION: 09/23/2018 PROBLEM LIST: 1. 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 Urinary retention, R33.9 3. Right renal mass, N28.89 4. Left adrenal mass (HCC), E27.9 5. Metastatic lung cancer (metastasis from lung to other site) (HCC), C34.90 HISTORY OF PRESENT ILLNESS: Mr. 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 The patient did go ahead and catheterize himself and noticed that he had gross blood in the bladder as well and presented to the emergency department for evaluation and assessment of that. The patient had an indwelling Aguayo catheter for 24 hours that was 3-way and on CBI irrigation, which cleared substantially and that catheter was discontinued today. Mr. Ley has a past history of urethral stricture disease and was on home intermittent catheterization secondary to that. In addition, the patient has a longstanding history of widely metastatic lung cancer, which has been on chemotherapy that responded to its initial therapy. He recently has become resistant to that and he was offered various additional treatment options. The patient is also under the care of a optical lab technician in [facility] and started what sounds to be a "[place]"- type diet. Mr. Ley reports that he is voiding well on maximal medical therapy as long as he performs his intermittent catheterization twice per day. Since he had a gross hematuria episode, he has a little bit of trepidation about that. The patient also is complaining of orthostatic symptoms and feels dizzy if he stands up at this point. PHYSICAL EXAMINATION: VITAL SIGNS: Temperature is 97.9, pulse 96, respirations 16, O2 saturation on room air is 94%, and blood pressure is 89/53. GENERAL: This is awake, alert, white male, in no apparent distress. He is wearing his glasses at this point and is communicative and normal. HEAD, EYES, EARS, NOSE, AND THROAT: Extraocular movements are intact. Sclerae anicteric. Oropharynx is clear. NECK: Supple. LUNGS: Clear to auscultation bilaterally. He has right chest wall chemotherapy access port. ABDOMEN: Soft and nontender. BACK: No costovertebral angle tenderness. GENITOURINARY: The patient's phallus is without external lesion. Urethral meatus appears adequate. No indwelling catheter. Testes are benign. NEUROLOGIC: Cranial nerves 3 through 11 appear to be grossly intact. The patient's gait was not assessed on this evaluation as the patient has orthostatic symptoms. RADIOLOGIC STUDIES: The patient underwent a CT scan of the abdomen and pelvis at admission on 09/22/2018. This study demonstrates a right upper pole probable renal mass or metastatic site. The patient also has a previously noted adrenal mass, which has decreased significantly in size on the left side. There is some thickening of the patient's bladder, possibly reflecting cystitis or neoplasm. The liver is unremarkable. An 8 mm enhancing lesion is seen within the gallbladder suggesting gallbladder mass or polyp. LABORATORY STUDIES: White count at admission was 16.1, this morning was down to 12.8. Current hemoglobin and hematocrit are 10.9 and 34.3. Additional chemistries included a comprehensive metabolic panel today showing the patient's glucose at 94. Estimated glomerular filtration rate at 58. Sodium 132, potassium 4.1, chloride 104, CO2 19, and blood urea nitrogen of 25. The urine culture is negative from 09/22/2018 and after 24 hours of observation shows no growth. ASSESSMENT AND PLAN: 1. Right upper pole renal mass and poor visualization of the patient's right ureter consistent with patient's history of metastatic disease. This could be a source of his gross hematuria. I am going to recommend that the patient's bladder and right upper pole be assessed by simple cystoscopy to start with. This can be performed as an outpatient in office. If the patient has blood exiting from the right ureteric orifice, this would be more or less indicate the origin of the patient's bleeding episode. The patient is very specific that he did not perform catheterization immediately prior to his bleeding episode at home. So we are not only concerned about catheter associated injury but about the bladder and upper tract. 2. Urethral stricture disease. The patient should continue on intermittent catheterization as previously recommended. 3. Anticoagulation. The patient is apparently on anticoagulation due to an increased risk of blood clots while on chemotherapy. At the present time, he seems to be presenting with bleeding as opposed to clotting. The patient should be placed on either lower level anticoagulation or at least have his current anticoagulation therapy suspended given the bleeding. 4. Disposition. The patient may follow up in my office at [facility] for further cystoscopic evaluation and assessment. TIME SPENT: Over 35 minutes of subsequent evaluation and assessment time was spent in the care of this patient, over of which was in face to face evaluation, or in coordination of care, or in communication with the patient's family regarding care, exclusive of any procedures performed, [id number]. Job ID: [id number] MTDD
--- NOTE | 2018-09-25 03:42 | DIS ---
DATE OF ADMISSION: 09/22/2018 DATE OF DISCHARGE: 09/24/2018 DISCHARGE DIAGNOSES: 1. Hematuria. 2. Benign prostatic hyperplasia with bladder outlet obstruction. 3. Orthostatic hypotension likely due to tamsulosin. 4. 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 5. History of coronary artery disease. HISTORY OF PRESENT ILLNESS: This patient is a 73-year-old male, who has had a history of lung cancer for about 6 years with a right renal mass. The patient has BPH with outlet obstruction and requires self-catheterization couple of times per day typically. The patient was also on Xarelto, which he states was started when he was diagnosed with a cancer, but has no history of any type of DVT or pulmonary embolus. The patient simply noted some blood with the attempts at self-catheterization and presented to the hospital. There was some concern for the possibility of Aguayo trauma. HOSPITAL COURSE: The patient was placed on observation with a Aguayo in place and continually monitored with the Xarelto being held. The patient's hemoglobin remained stable. After initial hydration, it went from 12.4 to 10.5, and then did not significantly change subsequent. The patient had urine cultures and blood culture sent that were negative. He was seen in consultation by Urology who felt there were no further recommendations and that the Aguayo catheter could be removed any time given the fact that the hematuria had completely cleared. This was accomplished, and the patient was felt to be likely stable for discharge. However, in checking orthostatic vital signs, they were significantly positive. In reviewing with the patient, it sounds like this has probably been going on for a good while prior to his admission and it was suspected this was due to the tamsulosin because of the b.i.d. dosing the patient did receive and did also have a bout of diarrhea, he used an Imodium. Given 500 mL of normal saline, kept overnight and re-evaluated the following morning. His diarrhea had resolved. He was feeling substantially better and eager to go home at that point. PHYSICAL EXAMINATION: VITAL SIGNS: Temperature is 97.6, pulse 90, respirations 14, BP 98/58 up to 110/77, he was 95% on room air. GENERAL APPEARANCE: He was awake and oriented. HEART: Regular rate and rhythm without murmurs. LUNGS: Clear bilaterally. ABDOMEN: Soft, nontender, and nondistended with positive bowel sounds. DISPOSITION: The patient is discharged to home. DISCHARGE INSTRUCTIONS: The patient is to have no restrictions on his diet. However, he is on a highly restricted sugar-free diet as prescribed by warehouse operations associate. His activity is as tolerated although counseled the patient at length regarding the need to avoid standing quickly which he fully understands and has been managing for a good while. DISCHARGE MEDICATIONS: 1. Tamsulosin 0.4 mg b.i.d. 2. Finasteride 1 at bedtime. 3. Multivitamin 1 p.o. daily. 4. Vitamin C one daily. 5. B12 one daily. 6. Atarax 10 mg t.i.d. p.r.n. 7. Green tea leaf extract. 8. Cannabidiol which the patient takes as needed. FOLLOWUP: He is to follow up with his PCP in [place] and Dr. Almanza in 1 week who is his primary urologist. He can return to the hospital should he have any problems prior to that time. Job ID: [id number]
== END 2018-09-24 12:05 | disposition home or self-care (01) ==
LOC: ERS 12:36 → 2SW 14:20
PROVIDERS: ADMIT Internal Medicine; ATTEND Internal Medicine
DX: C34.90 Malignant neoplasm of unspecified part of unspecified bronchus or lung (principal); C79.01 Secondary malignant neoplasm of right kidney and renal pelvis; R31.9 Hematuria, unspecified; C77.2 Secondary and unspecified malignant neoplasm of intra-abdominal lymph nodes; C79.71 Secondary malignant neoplasm of right adrenal gland; N35.012 Post-traumatic membranous urethral stricture; I25.10 Atherosclerotic heart disease of native coronary artery without angina pectoris; N40.1 Benign prostatic hyperplasia with lower urinary tract symptoms; N13.8 Other obstructive and reflux uropathy; R33.8 Other retention of urine; I95.1 Orthostatic hypotension; Z79.899 Other long term (current) drug therapy; Z87.891 Personal history of nicotine dependence; Z88.5 Allergy status to narcotic agent; Z95.5 Presence of coronary angioplasty implant and graft
CPT/HCPCS: 51702; 74177; 80048 ×3; 83605; 84439; 84443; 84481; 85014; 85018; 85025 ×3; 85610; 85730; 87040; 87086; 96361; 96365; 96375; 99285; G0378 ×2; 36415; 81003; 81015; J0696; J1642; J2270; J2405; Q9966

== ENCOUNTER 2018-10-09 19:31 | Inpatient (IN) | payer MEDICARE ==
--- NOTE | 2018-10-09 20:06 | RAD ---
EXAM: Single view of the chest HISTORY: Hypotension and sepsis COMPARISON: None FINDINGS: Single view of the chest shows a normal sized cardiomediastinal silhouette. A right IJ Med iport is seen with its tip in the superior vena cava. Increased interstitial lung markings are present. There is no evidence of consolidation, mass, or pleural effusion. Postsurgical changes are s een in the cervical spine. IMPRESSION: No evidence of acute cardiopulmonary disease
[2018-10-09 20:25] LABS: #Basophils 0.1 thou/uL (0.0-0.2); #Eosinphils 0.9 thou/uL (0.0-0.7); #Lymphocytes 2.5 thou/uL (1.20-3.40); #Monocytes 0.3 thou/uL (0.11-0.59); #Neutrophils 5.5 thou/uL (1.40-6.50); %Basophils 0.5 % (0.0-1.0); %Lymphocytes 26.9 % (21.0-51.0); %Monocytes 3.4 % (0.0-10.0); %Neutrophils 59.2 % (42.0-75.0); Hemoglobin 9.3 g/dL (14.0-18.0); Mean Corpuscular HGB CONC 31.7 g/dL (32.0-36.0); Mean Corpuscular Hemoglobin 27.9 pg (27.0-31.0); Mean Corpuscular Volume 88.1 fL (78.0-98.0); RBC Distribution Width 15.6 % (11.5-14.5); Red Blood Cell (RBC) Count 3.33 mill/uL (4.70-6.10); White Blood Cell (WBC) Count 9.3 thou/uL (4.8-10.8)
[2018-10-09] MEDS ORDERED: Piperacillin/Tazobactam 4.5 GM VIAL ONE (20:25)
[2018-10-09] MEDS ORDERED: Acetaminophen 500 MG TAB ONE ×2 (20:25)
[2018-10-09 20:45] LABS: Mean Platelet Volume 11.4 fL (7.4-10.4); Platelet Count 39 thou/uL (130-400)
[2018-10-09 20:53] LABS: ALT (SGPT) 15 U/L (8-55); AST (SGOT) 41 U/L (5-34); Albumin 1.9 g/dL (3.4-4.8); Alkaline Phosphatase 258 U/L (40-150); Anion Gap 13 mmol/L (10-20); BUN (Urea Nitrogen) 34 mg/dL (8.4-25.7); Bilirubin, Total 0.5 mg/dL (0.2-1.2); Calc. Creatinine Clearance 0 mL/min (70-130); Calcium 7.2 mg/dL (7.8-10.44); Carbon Dioxide 17 mmol/L (23-31); Chloride 104 mmol/L (98-107); Estimated GFR-MDRD 28; Globulin 3.3 g/dL (2.4-3.5); Glucose 79 mg/dL (83-110); Potassium 4.4 mmol/L (3.5-5.1); Protein, Total 5.2 g/dL (5.8-8.1); Sodium 130 mmol/L (136-145)
[2018-10-09] MEDS ORDERED: Acetaminophen 325 MG TAB PO PRN (22:36)
[2018-10-09] MEDS ORDERED: Vancomycin HCl 1 GM in Premix Bag 1 BAG IVPB SCH (22:45)
[2018-10-09] MEDS: Sodium Chloride 0.9% 1,000 ML IV SCH (23:00)
--- NOTE | 2018-10-09 23:03 | HP ---
PRIMARY CARE PROVIDER: Ms. Radha Portillo. CHIEF COMPLAINT: Generalized weakness. HISTORY OF PRESENT ILLNESS: Mr. Ley is a pleasant 73-year-old gentleman, who was seen at [facility] on October 09, 2018. He was hospitalized at this facility from September 22 to of this year for hematuria; benign prostatic hyperplasia with bladder outlet obstruction; and prostatic hypotension, likely due to tamsulosin. He has diarrhea over the last 2 weeks. He denies any abdominal pain. He reports a temperature of 101 degrees Fahrenheit two days ago. He denies any chest pain or palpitations. REVIEW OF SYSTEMS: All other systems reviewed and found to be negative. 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 He is currently receiving alternative treatments. Coronary artery disease, status post PCI with stent. DVT, for which he was on rivaroxaban which was recently discontinued. PAST SURGICAL HISTORY: PCI with stent, bilateral inguinal hernia repair, cervical spine surgery, and MediPort placement. CURRENT MEDICATIONS: 1. Tamsulosin 0.4 mg 2 times a day. 2. Finasteride 5 mg daily. 3. Lugol's iodine one tablet daily. 4. Vitamin C daily. 5. Vitamin B12 daily. 6. Iron tablets daily. 7. Green tea. 8. Multivitamin tablet. ALLERGIES: CODEINE. FAMILY HISTORY: Myocardial infarction in his father. SOCIAL HISTORY: Patient denies any current tobacco use, alcohol use, or recreational drug use. CODE STATUS: I discussed his code status. He is currently in the process of clarifying his code status. At this point in time, he would like to be full code. PHYSICAL EXAMINATION: GENERAL: On examination, Mr. Ley is awake and alert, not in acute distress. VITAL SIGNS: Blood pressure is 98/55, pulse 90, respiratory rate 20, and oxygen saturation 96%. Earlier, he had a pulse of 105 and respiratory rate of 28. He is currently afebrile. EYES: No scleral icterus, no conjunctival pallor. ENT: Slightly dry mucosal membranes. No oropharyngeal erythema or exudates. NECK: Supple, nontender, trachea is midline. RESPIRATORY: Accessory muscles of breathing are not active. Chest wall movements are symmetric bilaterally. Lungs are clear to auscultation without wheeze, rhonchi, or crepitations. CARDIOVASCULAR: S1 and S2 are heard, regular. Peripheral pulses palpable. NEUROLOGIC: Cranial nerves 2 through 12 are intact. MUSCULOSKELETAL: Power is 5/5 in all 4 extremities. SKIN: Trace bilateral lower extremity edema. LYMPHATIC: No cervical lymphadenopathy. PSYCHIATRIC: Normal mood, normal affect, patient is oriented to person, place, and time. LABORATORY DATA: Mr. Ley's labs and investigations were reviewed. Chest x-ray did not show any pulmonary infiltrates. He has normal white count, normocytic anemia with hemoglobin 9.3, decreased platelet count of 39,000. Decreased sodium of 130; normal potassium; elevated blood urea nitrogen of 34; elevated creatinine of 2.33, last known creatinine was 1.16 on September 24, 2018; normal lactic acid; normal total bilirubin; elevated AST of 41; normal ALT; normal alkaline phosphatase. Normal troponin-I and normal BNP. Decreased albumin of 1.9. ASSESSMENT AND PLAN: Mr. Ley is a pleasant 73-year-old gentleman, who was seen at [facility] on October 09, 2018. His problem list includes: 1. Hypotension: Mr. Ley is presenting with hypotension and generalized weakness in the context of having diarrhea over the last 2 weeks. He will be admitted to the hospital for further management including intravenous rehydration. 2. Sepsis: His presentation also meets the criteria for sepsis, with suspected source of infection in the GI tract. We will also request urine studies to rule out urinary tract infection. Patient has received empiric vancomycin and Zosyn, which I will continue for now. 3. Acute kidney injury: Most likely prerenal given his history of diarrhea. We will provide intravenous hydration and recheck. 4. Benign prostatic hypertrophy: Stable, continue tamsulosin and finasteride. 5. History of lung cancer: Patient reports that he is now on alternative treatments. Many thanks for allowing me to participate in your patient's care. Please feel free to contact me with any questions or concerns. LEVEL OF RISK: Moderate. LEVEL OF COMPLEXITY: Moderate. Job ID: [id number]
[2018-10-09 23:59] VITALS: BMI 21.7
[2018-10-09] MEDS ORDERED: Piperacillin/Tazobactam 3.375 GM in Sodium Chloride 0.9% 100 ML IVPB SCH (23:59)
[2018-10-10] MEDS: Piperacillin/Tazobactam 2.25 GM in Sodium Chloride 0.9% 100 ML IVPB SCH ×4 (01:22→20:15)
[2018-10-10] MEDS ORDERED: hydrOXYzine 25 MG TAB PO SCH (05:45)
[2018-10-10 06:11] LABS: #Basophils 0.1 thou/uL (0.0-0.2); #Eosinphils 1.8 thou/uL (0.0-0.7); #Lymphocytes 1.9 thou/uL (1.20-3.40); #Monocytes 0.6 thou/uL (0.11-0.59); #Neutrophils 8.1 thou/uL (1.40-6.50); %Basophils 0.5 % (0.0-1.0); %Eosinophils 14.6 % (0.0-10.0); %Lymphocytes 15.2 % (21.0-51.0); %Monocytes 4.7 % (0.0-10.0); Hemoglobin 9.3 g/dL (14.0-18.0); Mean Corpuscular HGB CONC 31.8 g/dL (32.0-36.0); Mean Corpuscular Hemoglobin 27.9 pg (27.0-31.0); Mean Corpuscular Volume 87.6 fL (78.0-98.0); Platelet Count 187 thou/uL (130-400); RBC Distribution Width 15.8 % (11.5-14.5); Red Blood Cell (RBC) Count 3.34 mill/uL (4.70-6.10); White Blood Cell (WBC) Count 12.4 thou/uL (4.8-10.8)
[2018-10-10 06:24] LABS: Anion Gap 12 mmol/L (10-20); BUN (Urea Nitrogen) 32 mg/dL (8.4-25.7); Calc. Creatinine Clearance 26 mL/min (70-130); Calcium 7.1 mg/dL (7.8-10.44); Carbon Dioxide 16 mmol/L (23-31); Chloride 109 mmol/L (98-107); Estimated GFR-MDRD 28; Glucose 82 mg/dL (83-110); Potassium 3.8 mmol/L (3.5-5.1); Sodium 133 mmol/L (136-145)
[2018-10-10] MEDS: hydrOXYzine 10 MG TAB PO SCH ×4 (08:31→21:59)
[2018-10-10] MEDS: Tamsulosin HCl 0.4 MG CAP PO SCH ×2 (08:31→21:59)
[2018-10-10] MEDS: Sodium Chloride 0.9% 1,000 ML IV SCH ×2 (14:35→18:29)
[2018-10-10] MEDS ORDERED: Guaifenesin DM 100-10/5 ML UDCUP PO PRN (15:03)
[2018-10-10] MEDS: Guaifenesin DM 100-10/5 ML UDCUP PO PRN ×2 (16:49→22:00)
--- NOTE | 2018-10-10 18:28 | PDOC.PN ---
- Subjective Encounter Start Date: 10/10/18 Encounter Start Time: 18:05 Subjective: f/u suspected sepsis, stage IV adenocarcinoma lung with renal metastasis. -: Poor appetite and energy, some loose stool. No fever. - Objective Resuscitation Status - Order Detail: 10/09/18 22:36 Resuscitation Status Routine Resuscitation Status: FULL: Full Resuscitation Discussed with: kacy MALAVE Reviewed: Yes Vital Signs & Weight: Vital Signs (12 hours) Temp Pulse Resp BP Pulse Ox 10/10/18 16:00 97.7 F 102 H 14 92/57 L 95 10/10/18 12:00 97.6 F 99 16 91/55 L 95 10/10/18 08:05 97.6 F 87 16 96/55 L 94 L 10/10/18 08:00 94 L Weight Admit Weight 143 lb 4.8 oz Weight 143 lb I&O: 10/09/18 10/10/18 10/11/18 06:59 06:59 06:59 Intake Total 1960 Balance 1960 Result Diagrams: 10/10/18 05:45 10/10/18 05:45 Additional Labs: Microbiology 10/09/18 20:12 Venous blood - Right Arm Blood Culture - Preliminary Specimen has been received and culture in progress. No Growth to date. 10/09/18 19:43 Port - Right external iliac vein Blood Culture - Preliminary Specimen has been received and culture in progress. No Growth to date. Laboratory Tests 10/09/18 10/09/18 19:43 19:43 WBC 9.3 Hgb 9.3 L Plt Count 39 L Sodium 130 L BUN 34 H Creatinine 2.33 H Radiology Reviewed by me: Yes (PCXR - no acute process) Phys Exam - Physical Examination pale, ill-appearing, responds to questions HEENT: PERRLA, sclera anicteric, oral pharynx no lesions Neck: no nodes, no JVD, supple, full ROM few scattered rhonchi Respiratory: no wheezing, no rales S1, S2 Cardiovascular: RRR, no significant murmur, no rub, gallop Gastrointestinal: soft, non-tender, no distention, positive bowel sounds bilat edema of ankles Musculoskeletal: pulses present, edema present Neurological: normal sensation, moves all 4 limbs Psychiatric: A&O x 3 Skin: normal turgor, cap refill <2 seconds Dx/Plan (1) Sepsis Code(s): A41.9 - SEPSIS, UNSPECIFIED ORGANISM Status: Acute Comment: Suspected, continue Zosyn, Ucx pending, continue IVF's (2) Renal metastasis Code(s): C79.00 - SECONDARY MALIGNANT NEOPLASM OF UNSP KIDNEY AND RENAL PELVIS Status: Chronic Qualifiers: Laterality: right Qualified Code(s): C79.01 - Secondary malignant neoplasm of right kidney and renal pelvis Comment: Suspect component of worsening renal function (3) Adenocarcinoma of lung Code(s): C34.90 - MALIGNANT NEOPLASM OF UNSP PART OF UNSP BRONCHUS OR LUNG Status: Chronic Qualifiers: Laterality: right Qualified Code(s): C34.91 - Malignant neoplasm of unspecified part of right bronchus or lung Comment: Appears nearing end-stage process, Oncology consult, consider Palliative care (4) Orthostatic hypotension Code(s): I95.1 - ORTHOSTATIC HYPOTENSION Status: Chronic Comment: Continue IVF's, avoid antihypertensives (5) KIESHA (acute kidney injury) Code(s): N17.9 - ACUTE KIDNEY FAILURE, UNSPECIFIED Status: Acute Comment: Suspect due to dehydration in addition to metastatic process, avoid nephrotoxic agents and limit contrast exposure, serial creatinine - Plan plan discussed w/ family, continue antibiotics, PT/OT, social secretary, DVT proph w/SCDs Stable currently -: Increase IVF's 100ml/h -: Trial Megace -: Consider Palliative Consult -: Consult Medical Oncology * AM lab: CMP, CBC
[2018-10-10] MEDS: Finasteride 5 MG TAB PO SCH (21:59)
[2018-10-10] MEDS: Megestrol Acetate 40 MG TAB PO SCH (22:00)
[2018-10-10] MEDS: Vancomycin HCl 1 GM in Premix Bag 1 BAG IVPB SCH (22:23)
[2018-10-11] MEDS: Piperacillin/Tazobactam 2.25 GM in Sodium Chloride 0.9% 100 ML IVPB SCH ×4 (02:15→20:15)
[2018-10-11] MEDS: Sodium Chloride 0.9% 1,000 ML IV SCH ×2 (02:25→13:20)
[2018-10-11 06:51] LABS: Band 10 % (5-11); Eosinophils 11 % (0-10); Hemoglobin 8.2 g/dL (14.0-18.0); Lymphocytes 12 % (21-51); MDiff Complete? YES; Mean Corpuscular HGB CONC 32.5 g/dL (32.0-36.0); Mean Corpuscular Hemoglobin 28.2 pg (27.0-31.0); Mean Platelet Volume 8.3 fL (7.4-10.4); Monocytes 5 % (0-10); Neutrophil 62 % (42-75); Platelet Count 179 thou/uL (130-400); Platelet Morphology Comment Appears Adequate; RBC Distribution Width 15.8 % (11.5-14.5); Red Blood Cell (RBC) Count 2.91 mill/uL (4.70-6.10); White Blood Cell (WBC) Count 11.8 thou/uL (4.8-10.8)
[2018-10-11 07:02] LABS: ALT (SGPT) 15 U/L (8-55); AST (SGOT) 33 U/L (5-34); Albumin 1.5 g/dL (3.4-4.8); Alkaline Phosphatase 194 U/L (40-150); Anion Gap 11 mmol/L (10-20); BUN (Urea Nitrogen) 29 mg/dL (8.4-25.7); Bilirubin, Total 0.4 mg/dL (0.2-1.2); Calc. Creatinine Clearance 28 mL/min (70-130); Calcium 6.9 mg/dL (7.8-10.44); Carbon Dioxide 17 mmol/L (23-31); Chloride 113 mmol/L (98-107); Estimated GFR-MDRD 31; Globulin 2.5 g/dL (2.4-3.5); Glucose 90 mg/dL (83-110); Potassium 3.9 mmol/L (3.5-5.1); Sodium 137 mmol/L (136-145)
[2018-10-11] MEDS ORDERED: GREEN TEA LEAF EXTRACT PO SCH (09:00)
[2018-10-11] MEDS: Guaifenesin DM 100-10/5 ML UDCUP PO PRN ×3 (09:40→21:30)
[2018-10-11] MEDS: Ascorbic Acid 500 mg Chewable Tablet PO SCH (09:42)
[2018-10-11] MEDS: Cyanocobalamin (Vitamin B-12) 1,000 MCG TAB PO SCH (09:42)
[2018-10-11] MEDS: Megestrol Acetate 40 MG TAB PO SCH ×3 (09:42→21:31)
[2018-10-11] MEDS: Tamsulosin HCl 0.4 MG CAP PO SCH ×2 (09:42→21:31)
[2018-10-11] MEDS ORDERED: Multivitamin W/ Minerals 1 TAB PO SCH (09:45)
[2018-10-11] MEDS: hydrOXYzine 10 MG TAB PO SCH ×4 (10:19→21:31)
--- NOTE | 2018-10-11 11:04 | PDOC.PN ---
- Subjective Encounter Start Date: 10/11/18 Encounter Start Time: 10:58 Patient seen and examined, no new issue, says his stomach feels bloated. - Objective Resuscitation Status - Order Detail: 10/09/18 22:36 Resuscitation Status Routine Resuscitation Status: FULL: Full Resuscitation Discussed with: patient Vital Signs & Weight: Vital Signs (12 hours) Temp Pulse Resp BP Pulse Ox 10/11/18 08:35 97.4 F L 80 16 79/49 L 93 L 10/11/18 08:00 88 89/55 L Weight Admit Weight 143 lb 4.8 oz Weight 143 lb I&O: 10/10/18 10/11/18 10/12/18 06:59 06:59 06:59 Intake Total 1960 Balance 1960 Result Diagrams: 10/11/18 06:25 10/11/18 06:25 Phys Exam - Physical Examination Constitutional: NAD HEENT: PERRLA, moist MMs, sclera anicteric Neck: no nodes, no JVD, supple Respiratory: no wheezing, no rales, no rhonchi Cardiovascular: RRR, no significant murmur, no rub Gastrointestinal: soft, non-tender, no distention, positive bowel sounds Musculoskeletal: no edema, pulses present Dx/Plan (1) Diarrhea Code(s): R19.7 - DIARRHEA, UNSPECIFIED Status: Acute (2) KIESHA (acute kidney injury) Code(s): N17.9 - ACUTE KIDNEY FAILURE, UNSPECIFIED Status: Acute Comment: Suspect due to dehydration in addition to metastatic process, avoid nephrotoxic agents and limit contrast exposure, serial creatinine (3) Sepsis Code(s): A41.9 - SEPSIS, UNSPECIFIED ORGANISM Status: Acute Comment: Suspected, continue Zosyn, Ucx pending, continue IVF's (4) Adenocarcinoma of right lung Code(s): C34.91 - MALIGNANT NEOPLASM OF UNSP PART OF RIGHT BRONCHUS OR LUNG Status: Acute (5) Orthostatic hypotension Code(s): I95.1 - ORTHOSTATIC HYPOTENSION Status: Chronic Comment: Continue IVF's, avoid antihypertensives - Plan * cont abx * KUB this evening * cont with megace trail for now * oncology input pending * labs in AM * case and plan d/w patient and family at length, they understood and agreed with this plan.
--- NOTE | 2018-10-11 11:50 | RAD ---
SINGLE VIEW OF THE ABDOMEN: COMPARISON: None. HISTORY: Abdominal pain. FINDINGS: A single view of the abdomen shows a nonspecific, nonobstructive bowel gas pattern. Air is seen to t he level of the rectum. No suspicious calcifications are seen. IMPRESSION: Nonobstructive bowel gas pattern. POS: [facility]
[2018-10-11 19:58] LABS: Bilirubin Negative (Negative); Blood, Urine Large (Negative); Clarity CLOUDY (Clear); Glucose, Urine (Dipstick) Negative (Negative); Leukocyte Small (Negative); Nitrite Negative (Negative); Protein, Urine (Dipstick) 100 mg/dL (Neg-Trace); Specific Gravity, Urine 1.026 (1.002-1.036); Urobilinogen 0.2 mg/dL (0.2-1.0); pH, Urine 5.5 (5.0-9.0)
[2018-10-11 20:00] LABS: Bacteria/HPF None Seen HPF (None Seen); Pathc Cast-AUWi Flag 2.17 (0-2.49); RBC/HPF GREATER THAN 50-TNTC HPF (0-3); WBC/HPF 21-50 HPF (0-3)
[2018-10-11 20:09] LABS: Hyaline Casts/LPF 0-3 HYALINE CAST LPF (0-3 Hyaline); Other Casts/LPF None Seen LPF (0-3 Hyaline)
[2018-10-11 20:10] LABS: Renal Epithelial 0-3 HPF (0-3); Transitional Epithelial 0-3 HPF (0-3)
[2018-10-11 20:11] LABS: Urine Culture Reflex No No
[2018-10-11] MEDS: Vancomycin HCl 1 GM in Premix Bag 1 BAG IVPB SCH (21:30)
[2018-10-11] MEDS: Finasteride 5 MG TAB PO SCH (21:31)
[2018-10-11 21:44] LABS: Vancomycin, Trough 7.4 ug/mL
[2018-10-11] MEDS ORDERED: Vancomycin HCl 500 MG in Sodium Chloride 0.9% 100 ML IVPB SCH (23:00)
[2018-10-12] MEDS: Sodium Chloride 0.9% 1,000 ML IV SCH ×2 (02:05→18:14)
[2018-10-12] MEDS: Piperacillin/Tazobactam 2.25 GM in Sodium Chloride 0.9% 100 ML IVPB SCH ×4 (02:10→20:52)
[2018-10-12 07:47] LABS: #Basophils 0.1 thou/uL (0.0-0.2); #Eosinphils 2.3 thou/uL (0.0-0.7); #Lymphocytes 2.6 thou/uL (1.20-3.40); #Monocytes 0.6 thou/uL (0.11-0.59); #Neutrophils 7.3 thou/uL (1.40-6.50); %Basophils 0.6 % (0.0-1.0); %Eosinophils 17.7 % (0.0-10.0); %Monocytes 4.9 % (0.0-10.0); %Neutrophils 56.9 % (42.0-75.0); Hemoglobin 6.8 g/dL (14.0-18.0); Mean Corpuscular HGB CONC 31.9 g/dL (32.0-36.0); Mean Corpuscular Hemoglobin 27.9 pg (27.0-31.0); Mean Corpuscular Volume 87.6 fL (78.0-98.0); Platelet Count 175 thou/uL (130-400); RBC Distribution Width 16.2 % (11.5-14.5); Red Blood Cell (RBC) Count 2.44 mill/uL (4.70-6.10); White Blood Cell (WBC) Count 12.8 thou/uL (4.8-10.8)
[2018-10-12 07:59] LABS: ALT (SGPT) 13 U/L (8-55); AST (SGOT) 31 U/L (5-34); Albumin 1.5 g/dL (3.4-4.8); Alkaline Phosphatase 184 U/L (40-150); Anion Gap 12 mmol/L (10-20); BUN (Urea Nitrogen) 27 mg/dL (8.4-25.7); Bilirubin, Total 0.3 mg/dL (0.2-1.2); Calc. Creatinine Clearance 34 mL/min (70-130); Calcium 6.9 mg/dL (7.8-10.44); Carbon Dioxide 15 mmol/L (23-31); Chloride 114 mmol/L (98-107); Estimated GFR-MDRD 38; Globulin 2.7 g/dL (2.4-3.5); Glucose 85 mg/dL (83-110); Potassium 3.5 mmol/L (3.5-5.1); Protein, Total 4.2 g/dL (5.8-8.1); Sodium 137 mmol/L (136-145)
[2018-10-12] MEDS: Cyanocobalamin (Vitamin B-12) 1,000 MCG TAB PO SCH (08:25)
[2018-10-12] MEDS: Ascorbic Acid 500 mg Chewable Tablet PO SCH (08:25)
[2018-10-12] MEDS: hydrOXYzine 10 MG TAB PO SCH ×4 (08:25→20:57)
[2018-10-12] MEDS: Megestrol Acetate 40 MG TAB PO SCH ×3 (08:25→20:57)
[2018-10-12] MEDS: Tamsulosin HCl 0.4 MG CAP PO SCH ×2 (08:25→20:57)
[2018-10-12] MEDS: Multivitamin W/ Minerals 1 TAB PO SCH (08:25)
--- NOTE | 2018-10-12 08:32 | PDOC.PN ---
- Subjective Encounter Start Date: 10/12/18 Encounter Start Time: 08:29 Patient seen and examined, no new issues, abdominal bloating continues. All questions answered. - Objective Resuscitation Status - Order Detail: 10/09/18 22:36 Resuscitation Status Routine Resuscitation Status: FULL: Full Resuscitation Discussed with: patient Vital Signs & Weight: Vital Signs (12 hours) Pulse Ox 10/12/18 03:06 95 Weight Admit Weight 143 lb 4.8 oz Weight 143 lb I&O: 10/11/18 10/12/18 10/13/18 06:59 06:59 06:59 Intake Total 1960 Balance 1960 Result Diagrams: 10/12/18 04:30 10/12/18 04:30 Phys Exam - Physical Examination Constitutional: NAD HEENT: PERRLA, moist MMs, sclera anicteric Neck: no nodes, no JVD, supple Respiratory: no wheezing, no rales, no rhonchi Cardiovascular: RRR, no significant murmur, no rub Gastrointestinal: soft, non-tender, no distention, positive bowel sounds Musculoskeletal: pulses present, edema present Dx/Plan (1) Diarrhea Code(s): R19.7 - DIARRHEA, UNSPECIFIED Status: Acute (2) KIESHA (acute kidney injury) Code(s): N17.9 - ACUTE KIDNEY FAILURE, UNSPECIFIED Status: Acute Comment: Suspect due to dehydration in addition to metastatic process, avoid nephrotoxic agents and limit contrast exposure, serial creatinine (3) Sepsis Code(s): A41.9 - SEPSIS, UNSPECIFIED ORGANISM Status: Acute Comment: Suspected, continue Zosyn, Ucx pending, continue IVF's (4) Adenocarcinoma of right lung Code(s): C34.91 - MALIGNANT NEOPLASM OF UNSP PART OF RIGHT BRONCHUS OR LUNG Status: Acute (5) Orthostatic hypotension Code(s): I95.1 - ORTHOSTATIC HYPOTENSION Status: Chronic Comment: Continue IVF's, avoid antihypertensives - Plan * transfuse 1 unit PRBC * renal evaluation and oncology evaluation pending * KUB shows gas pattern * continue megace trial for now * 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
[2018-10-12] MEDS ORDERED: Furosemide 40 MG/4 ML VIAL SLOW IVP SCH (08:45)
[2018-10-12 09:44] LABS: Iron 46 ug/dL (65-175)
[2018-10-12 11:32] LABS: Iron Binding Capacity, Total 45 mcg/dL (261-462)
[2018-10-12] MEDS: Finasteride 5 MG TAB PO SCH (20:57)
[2018-10-12] MEDS ORDERED: Vancomycin HCl 1.5 GM in Sodium Chloride 0.9% 250 ML 300 ML IVPB SCH (22:00)
[2018-10-12] MEDS: Guaifenesin DM 100-10/5 ML UDCUP PO PRN (22:31)
[2018-10-13] MEDS: Piperacillin/Tazobactam 2.25 GM in Sodium Chloride 0.9% 100 ML IVPB SCH ×4 (01:57→20:48)
[2018-10-13] MEDS: Sodium Chloride 0.9% 1,000 ML IV SCH ×2 (02:00→08:52)
[2018-10-13 07:10] LABS: Vancomycin, Trough 31.8 ug/mL
[2018-10-13 08:40] LABS: #Basophils 0.1 thou/uL (0.0-0.2); #Eosinphils 1.7 thou/uL (0.0-0.7); #Lymphocytes 2.7 thou/uL (1.20-3.40); #Monocytes 0.7 thou/uL (0.11-0.59); #Neutrophils 7.1 thou/uL (1.40-6.50); %Basophils 0.5 % (0.0-1.0); %Eosinophils 13.5 % (0.0-10.0); %Lymphocytes 22.3 % (21.0-51.0); %Monocytes 5.6 % (0.0-10.0); %Neutrophils 58.2 % (42.0-75.0); Hemoglobin 9.8 g/dL (14.0-18.0); Mean Corpuscular HGB CONC 32.5 g/dL (32.0-36.0); Mean Corpuscular Hemoglobin 28.4 pg (27.0-31.0); Mean Corpuscular Volume 87.2 fL (78.0-98.0); Mean Platelet Volume 9.4 fL (7.4-10.4); Platelet Count 153 thou/uL (130-400); Red Blood Cell (RBC) Count 3.44 mill/uL (4.70-6.10); White Blood Cell (WBC) Count 12.2 thou/uL (4.8-10.8)
[2018-10-13] MEDS: hydrOXYzine 10 MG TAB PO SCH ×4 (08:52→20:43)
[2018-10-13] MEDS: Megestrol Acetate 40 MG TAB PO SCH ×3 (08:52→20:44)
[2018-10-13] MEDS: Tamsulosin HCl 0.4 MG CAP PO SCH ×2 (08:52→20:44)
[2018-10-13] MEDS: Ascorbic Acid 500 mg Chewable Tablet PO SCH (08:53)
[2018-10-13] MEDS: Cyanocobalamin (Vitamin B-12) 1,000 MCG TAB PO SCH (08:53)
[2018-10-13] MEDS: Multivitamin W/ Minerals 1 TAB PO SCH (08:53)
[2018-10-13 09:00] LABS: ALT (SGPT) 14 U/L (8-55); AST (SGOT) 32 U/L (5-34); Albumin 1.6 g/dL (3.4-4.8); Alkaline Phosphatase 184 U/L (40-150); Anion Gap 12 mmol/L (10-20); BUN (Urea Nitrogen) 23 mg/dL (8.4-25.7); Bilirubin, Total 0.5 mg/dL (0.2-1.2); Calc. Creatinine Clearance 36 mL/min (70-130); Calcium 6.9 mg/dL (7.8-10.44); Carbon Dioxide 14 mmol/L (23-31); Chloride 116 mmol/L (98-107); Estimated GFR-MDRD 40; Globulin 2.8 g/dL (2.4-3.5); Glucose 86 mg/dL (83-110); Potassium 3.3 mmol/L (3.5-5.1); Protein, Total 4.4 g/dL (5.8-8.1); Sodium 139 mmol/L (136-145)
[2018-10-13] MEDS: Guaifenesin DM 100-10/5 ML UDCUP PO PRN ×3 (09:18→20:43)
[2018-10-13] MEDS ORDERED: Sodium Chloride 0.9% 1,000 ML IV SCH (09:44)
[2018-10-13] MEDS ORDERED: Potassium Chloride 20 MEQ TAB PO SCH (10:15)
--- NOTE | 2018-10-13 11:00 | PRG ---
DATE OF SERVICE: 10/13/2018 SUBJECTIVE: The patient reports some shortness of breath this morning. He has an inhaler at the bedside, which is his own, which he has used this morning. He has a little bit of a cough as well. Daughter is in the room with him and she believes he has actually been eating a little bit every day, which she finds reasonable. The patient reports that his does not feel like he is eating enough. He reports he just does not have much in the way of an appetite. PHYSICAL EXAMINATION: VITAL SIGNS: Temperature is 98.1, pulse 104, respirations are 12, O2 saturation 97% on room air, and BP 103/53. GENERAL APPEARANCE: Age-appropriate male, he is in no distress. He is mildly short of breath. HEENT: PERRL. No OP lesions. HEART: Regular rate and rhythm. LUNGS: Diminished bilaterally with minimal scattered rales, but no wheezes. ABDOMEN: Soft and nondistended. Positive bowel sounds. Mildly diffusely tender with no guarding or rebound. EXTREMITIES: Has 1+ pitting edema around the feet and ankles. LABORATORY DATA: White count 12.2, hemoglobin 9.8, and platelets are 153. Sodium 139, potassium 3.3, chloride 116, CO2 is 14, creatinine is 1.67, calcium of 6.9, alkaline phosphatase 184, albumin 1.6. Stool positive for occult blood. Stool culture, negative. Sputum culture only showing few gram-positive cocci in pairs and chains. IMPRESSION AND PLAN: 1. Diarrhea, improving. Etiology is unclear. 2. Acute renal insufficiency. The patient's creatinine has improved daily with IV fluids, I am going to start slowing this down a bit now. 3. Peripheral edema secondary to aggressive hydration and low albumin. Received Lasix yesterday. I am going to reduce his IV fluid rate today. 4. Metastatic lung cancer with lesion in the right upper pole of the kidney. The patient has been through all treatment options and is currently on a more homeopathic regimen which is a strict glucose deprivation diet. The patient makes an exception in this diet when he is in the hospital. 5. Anemia, partially dilutional and possibly related to positive Hemoccult, status post transfusion of 1 unit. 6. Heme-positive stool in the setting of the progressive anemia. We will go and consult GI. Start pantoprazole. The patient is on omeprazole at home. The patient does not appear to have true iron deficiency as his ferritin levels are high, but his iron binding capacity is significantly low, making this more likely related to nutritional deficit. 7. History of urinary retention secondary to BPH. Continuing with intermittent catheterization. 8. Borderline hypotension. The patient was dealing with this in his previous admission as well. I believe this is at least partially related to the patient's tamsulosin dosing. 9. Shortness of breath, likely secondary to chronic underlying chronic obstructive pulmonary disease. We will add nebulizer treatments. Repeat chest x-ray. 10. Possible urinary tract infection. This was a concern initially along with the patient's diarrhea, indicated the Zosyn and the vancomycin. If chest x-ray remains negative today. We will discontinue at least the vancomycin portion. Job ID: [id number]
--- NOTE | 2018-10-13 12:33 | RAD ---
PORTABLE CHEST: 10/13/18 HISTORY: Shortness of breath and cough. COMPARISON: 10/09/18. Correlation also made to prior CT of 09/09/17. Nodular density in the peripheral left upper mid lung is again seen. This was not apparent on the praveena or CT and may represent a new pulmonary nodule or mass. Linear density and parenchymal opacity in the left lung base has increased suggesting atelectasis and/or new infiltrate. Interstitial markings rem ain prominent in both lung bases. Mediport catheter is unchanged. Heart size is normal. IMPRESSION: 1. New nodular opacity in the peripheral left upper lung as noted above. 2. Atelectasis and/or new infiltrate in the left lung base. 3. Chronic lung change with diffuse interstitial prominence again noted. POS: OFF
[2018-10-13] MEDS: Albumin 25% 25 GM/100 ML BOT IVPB SCH ×2 (14:41→22:05)
[2018-10-13] MEDS: Loperamide HCl 2 MG CAP PO PRN (20:42)
[2018-10-13] MEDS: Finasteride 5 MG TAB PO SCH (20:44)
[2018-10-13 21:26] LABS: Vancomycin, Trough 23.3 ug/mL
[2018-10-13] MEDS ORDERED: Vancomycin HCl 1.5 GM in Sodium Chloride 0.9% 250 ML 300 ML IVPB SCH (22:00)
--- NOTE | 2018-10-13 23:01 | CON ---
DATE OF CONSULTATION: REASON FOR CONSULT: Lung cancer. HISTORY OF PRESENT ILLNESS: Mr. 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 He has undergone multiple treatments over the last 4 years. He last received Opdivo immunotherapy and in June of 2018, he had a PET scan at that time that showed progression with right renal mass extension and invasion into the right kidney. Immunotherapy was stopped. The patient went on to alternative therapy consisting of a keto diet. He has not been seen in our clinic since July 29. Over the weekend, he began to have weakness and diarrhea. He has a history of urinary tract infection. He presented to the emergency room and was given aggressive hydration and admitted. His diet has been poor over the last month or so. He was started on megestrol with improvement in his symptoms. He ate [employer] and [employer] hamburger yesterday. He denies any complaints of pain at this time. PAST MEDICAL HISTORY: 1. Stage IV adenocarcinoma of lung. 2. Gastroesophageal reflux. 3. Chronic obstructive pulmonary disease. 4. Myocardial infarction. PAST SURGICAL HISTORY: Neck surgery. ALLERGIES: CODEINE. HOME MEDICATIONS: 1. Vitamin C daily. 2. CBD oil daily. 3. B12 daily. 4. Proscar daily. 5. Green tea capsule daily. 6. Iodine daily. 7. Multivitamin daily. 8. Prilosec daily. 9. Flomax daily. FAMILY HISTORY: His father had lung cancer. SOCIAL HISTORY: He is , has several children. No alcohol, tobacco, or illicit drug use. REVIEW OF SYSTEMS: A 10-point review of systems is negative except for noted in HPI. PHYSICAL EXAMINATION: VITAL SIGNS: Temperature is 98.1, pulse is 99, respiratory rate 16, BP is 103/53. He is 97% on room air. GENERAL: This is a cachectic male, in no acute distress. HEENT: Normocephalic, atraumatic. Pupils are equal and reactive to light. He has poor dentition. NECK: Supple. CV: Regular rate and rhythm. LUNGS: Clear anterior. ABDOMEN: Soft, mildly tender to palpation. EXTREMITIES: 1+ edema in his bilateral lower extremities. SKIN: No rash. HEMATOLOGICAL: No petechiae or purpura. NEUROLOGICAL: Nonfocal. PSYCH: He is alert and oriented. PERTINENT LABS AND X-RAYS: Current WBCs are 12.2, hemoglobin 9.8, hematocrit 30, platelet count is 153,000. He has 58% neutrophils, 22% lymphocytes. Sodium is 139, potassium 3.3, chloride 116, CO2 is 14, BUN is 23, creatinine 1.67, calcium is 6.9, bilirubin is 0.5, AST is 32, ALT is 14, alkaline phosphatase is 184. Serum total protein is 4.4, albumin 1.6, globulin 2.8. ASSESSMENT: 1. 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 2. Diarrhea, improving. 3. Protein deficient malnutrition. DISCUSSION: The patient has had a good appetite since starting megestrol, we continue in the outpatient setting. I had a long discussion with two of his daughters. We discussed progression of disease and end of life issues including focusing on comfort care and code status. We will have Palliative Care see him tomorrow to discuss his goals and his wishes. We will follow along with his hospitalization. Thank you for the consult. Job ID: [id number]
[2018-10-14] MEDS: Piperacillin/Tazobactam 2.25 GM in Sodium Chloride 0.9% 100 ML IVPB SCH ×4 (02:57→20:00)
[2018-10-14] MEDS: Guaifenesin DM 100-10/5 ML UDCUP PO PRN ×3 (03:33→15:24)
[2018-10-14] MEDS: Albumin 25% 25 GM/100 ML BOT IVPB SCH ×2 (05:18→14:22)
[2018-10-14] MEDS: Vancomycin HCl 1.25 GM in Sodium Chloride 0.9% 250 ML 250 ML IVPB SCH (05:27)
[2018-10-14 06:12] LABS: #Basophils 0.1 thou/uL (0.0-0.2); #Eosinphils 1.5 thou/uL (0.0-0.7); #Lymphocytes 2.3 thou/uL (1.20-3.40); #Monocytes 0.9 thou/uL (0.11-0.59); #Neutrophils 5.9 thou/uL (1.40-6.50); %Basophils 0.8 % (0.0-1.0); %Eosinophils 14.4 % (0.0-10.0); %Lymphocytes 21.6 % (21.0-51.0); %Monocytes 7.9 % (0.0-10.0); %Neutrophils 55.3 % (42.0-75.0); Hemoglobin 8.6 g/dL (14.0-18.0); Mean Corpuscular HGB CONC 32.5 g/dL (32.0-36.0); Mean Platelet Volume 8.4 fL (7.4-10.4); Platelet Count 151 thou/uL (130-400); Red Blood Cell (RBC) Count 3.08 mill/uL (4.70-6.10); White Blood Cell (WBC) Count 10.7 thou/uL (4.8-10.8)
[2018-10-14 06:32] LABS: ALT (SGPT) 11 U/L (8-55); AST (SGOT) 25 U/L (5-34); Alkaline Phosphatase 147 U/L (40-150); Anion Gap 8 mmol/L (10-20); BUN (Urea Nitrogen) 18 mg/dL (8.4-25.7); Bilirubin, Total 0.6 mg/dL (0.2-1.2); Calc. Creatinine Clearance 36 mL/min (70-130); Calcium 7.1 mg/dL (7.8-10.44); Carbon Dioxide 16 mmol/L (23-31); Chloride 118 mmol/L (98-107); Estimated GFR-MDRD 41; Globulin 2.2 g/dL (2.4-3.5); Glucose 89 mg/dL (83-110); Potassium 3.4 mmol/L (3.5-5.1); Protein, Total 4.2 g/dL (5.8-8.1); Sodium 139 mmol/L (136-145)
--- NOTE | 2018-10-14 08:41 | CON ---
DATE OF CONSULTATION: 10/13/2018 REASON FOR CONSULT: Diarrhea. HISTORY OF PRESENT ILLNESS: Mr. Ley is a 73-year-old gentleman, who was here in the hospital over weekend from 27 to 29, diagnosed with UTI and hematuria related to possible renal meds and anticoagulation. He was treated with antibiotics and his anticoagulations were stopped. He went home, but ultimately he began to have issues with diarrhea at home. He saw his PCP where he was dehydrated. He was hypotensive in the office and ultimately he came to the emergency room where he was admitted with a diagnosis of "sepsis." He did have a CAT scan during his August admission of the abdomen and pelvis that showed thickened urinary bladder, 8 mm gallbladder lesion, ill-defined mass in the right upper kidney, which has slightly increased in size. He has known metastasis from lung cancer there. Apparently, he had been on chemotherapy and immunotherapy in the past. His immunotherapy was held, however, in May. This is for lung cancer as he has finished his course. When he returned on the , he was having diarrhea for 2 days at that time with subjective fever, some abdominal pain. He was found to be in acute renal failure at that time as well. He was started on broad-spectrum antibiotics. His cultures of blood and urine have come back negative. His diarrhea stools sent on and came back positive for Campylobacter, negative for Shiga toxins, few normal violette isolated on routine culture. Clostridium difficile was not sent despite the fact that he had been in the hospital recently. Respiratory showed a little bit of Pseudomonas. No white blood cells, and occult stool test was positive for blood. I have been asked to see with regard to this. The patient states that the family is with him and states there was no overt bleeding that they are aware of. He did however receive a unit of blood for drop in hemoglobin from 8.2 on admission to 6.8. This is after aggressive rehydration. His baseline hemoglobin has been running between 9 and 10 over the past couple months. Today is the first day. He has felt better. He has had less diarrhea. He is actually going to get up and walk with the physical therapist. He was not eating well, but he has been started on appetite stimulant, the family reports. Additionally, he has received some Lasix for swelling. 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 His last colonoscopy was in 09/2013, at which time he had a few small polyps removed. He has a history of lung cancer and adenocarcinoma with adrenal metastasis, previous history of chemotherapy and 5 years of immunotherapy. He was on no treatments since May. He has coronary artery disease with previous stent. He has also had a DVT in the past, which he was on Xarelto that was discontinued. Recurrent urinary retention, which he was home catheterizing for. With regard to his malignancy, followup had been moved to more of holistic treatment documented in his last admission. PAST SURGICAL HISTORY: Bilateral inguinal hernia repairs, cervical spine surgery, MediPort placement, endoscopies, and cardiac events as noted above. ALLERGIES: UNKNOWN. PRESENT MEDICATIONS: 1. CBD oil. 2. DuoNeb. 3. Vitamin C. 4. Vitamin B. 5. Proscar. 6. Robitussin. 7. . 8. Atarax p.r.n. 9. Megace. 10. Protonix. 11. Zosyn. 12. Tamulosin. 13. Vancomycin. MEDICINES AT HOME: 1. P.r.n. Atarax. 2. Multivitamin. 3. Iodine. 4. Omeprazole. 5. Green leaf tea. 6. Proscar. 7. B12. 8. CBD oil. 9. Ascorbic acid. PHYSICAL EXAMINATION: GENERAL: The patient is resting comfortably in bed. He is in no distress. He has a cough. He is frail and thin. VITAL SIGNS: Temperature 98, pulse 104, blood pressure 103/53. LUNGS: Clear. HEART: Regular rate and rhythm. ABDOMEN: Soft and nontender. EXTREMITIES: No clubbing or cyanosis. He has some peripheral edema in his legs and some muscle wasting as well. RECTAL: Reveals no masses or lesions. No blood is detected and there is really nothing in the rectal vault at this time. IMAGING STUDIES: This admission chest x-ray shows nodular density in the perihilar left upper lung seen, apparently not seen on previous CAT scan from 09/09/2017. The radiologist concerned this could be a new mass. This is chronic interstitial lung disease. Abdomen x-ray on 10/11, nonspecific bowel gas pattern. I have reviewed these images myself. LABORATORY STUDIES: Hemoglobin 12.2, platelet count 153,000, hemoglobin 9.8. INR is normal. Sodium 139, potassium 3.3, BUN and creatinine are 23 and 1.67, calcium 6.9, alkaline phosphatase 24, AST and ALT are 32 and 14. Serum protein 4.4, albumin 1.6. ASSESSMENT: 1. History of metastatic lung cancer to the right adrenal. 2. Not on therapy at this time. There has been some commentary in his notes that he may be on alternative treatment. He has had a chest x-ray on this admission with a perihilar lesion which the radiologist felt was new. 3. Acute renal insufficiency, accelerated diarrhea and poor intake, improving. 4. Peripheral edema likely with aggressive hydration, low albumin. Did get some Lasix yesterday. 5. Diarrhea, acute. Seems to have a positive Campylobacter antigen, Clostridium difficile was not checked. It should be if he has further diarrhea in light of the recent hospitalization. 6. Anemia, chronic recently. 7. Heme-positive stool. I talked with the nurses. There was concern that maybe the patient had melenic stool on admission. However, on my rectal examination, there was no blood or stool in the vault at all. In light of his diarrhea, Hemoccult-positive stool is not unexpected. He should be continued on ulcer prophylaxis and observed. RECOMMENDATIONS: 1. Ulcer prophylaxis observation regarding heme-positive stool. 2. Acute diarrheal illness is markedly improved. His stool positive for Campylobacter whether this is a true infection is unclear, but he is doing better. We will go ahead and check the C. difficile if he has further diarrhea. 3. The patient will be given albumin for 24 to 48 hours to see if improve his . 4. With regard to history of dysphagia, dilatation of questionable effect in February 2011, he is swallowing fluids well here. We will follow along with you. Job ID: [id number]
[2018-10-14] MEDS: Megestrol Acetate 40 MG TAB PO SCH ×3 (09:32→20:00)
[2018-10-14] MEDS: Ascorbic Acid 500 mg Chewable Tablet PO SCH (09:32)
[2018-10-14] MEDS: Tamsulosin HCl 0.4 MG CAP PO SCH ×2 (09:32→20:00)
[2018-10-14] MEDS: Multivitamin W/ Minerals 1 TAB PO SCH (09:32)
[2018-10-14] MEDS: Cyanocobalamin (Vitamin B-12) 1,000 MCG TAB PO SCH (09:33)
[2018-10-14] MEDS: hydrOXYzine 10 MG TAB PO SCH ×4 (09:37→20:01)
--- NOTE | 2018-10-14 10:37 | PDOC.PN ---
- Subjective Encounter Start Date: 10/14/18 Encounter Start Time: 10:25 Diarrhea has improved significantly. Eating better as his appetite has improved. Still SOB. Has not been requesting the nebs frequently, but says they did help. - Objective Resuscitation Status - Order Detail: 10/09/18 22:36 Resuscitation Status Routine Resuscitation Status: FULL: Full Resuscitation Discussed with: patient Vital Signs & Weight: Vital Signs (12 hours) Temp Pulse Resp BP Pulse Ox 10/14/18 07:45 97.3 F L 93 20 109/65 95 10/14/18 03:23 97.6 F Weight Admit Weight 143 lb 4.8 oz Weight 143 lb I&O: 10/13/18 10/14/18 10/15/18 06:59 06:59 06:59 Intake Total 1450 1250 Balance 1450 1250 Result Diagrams: 10/14/18 05:30 10/14/18 05:30 Phys Exam - Physical Examination Constitutional: NAD Scattered rales and wheezes. Purse lip breathing. Cardiovascular: RRR, no significant murmur, no rub Gastrointestinal: soft, non-tender, no distention, positive bowel sounds 2-3+ pitting edema BLE's Neurological: non-focal Psychiatric: normal affect, A&O x 3 Skin: normal turgor Dx/Plan (1) Dehydration Code(s): E86.0 - DEHYDRATION Status: Acute (2) Pneumonia Code(s): J18.9 - PNEUMONIA, UNSPECIFIED ORGANISM Status: Acute (3) Pseudomonas aeruginosa infection Code(s): A49.8 - OTHER BACTERIAL INFECTIONS OF UNSPECIFIED SITE Status: Acute (4) KIESHA (acute kidney injury) Code(s): N17.9 - ACUTE KIDNEY FAILURE, UNSPECIFIED Status: Acute Comment: Suspect due to dehydration in addition to metastatic process, avoid nephrotoxic agents and limit contrast exposure, serial creatinine (5) Diarrhea Code(s): R19.7 - DIARRHEA, UNSPECIFIED Status: Acute (6) BPH with obstruction/lower urinary tract symptoms Code(s): N40.1 - BENIGN PROSTATIC HYPERPLASIA WITH LOWER URINARY TRACT SYMP; N13.8 - OTHER OBSTRUCTIVE AND REFLUX UROPATHY Status: Acute (7) Renal mass Code(s): N28.89 - OTHER SPECIFIED DISORDERS OF KIDNEY AND URETER Status: Acute (8) Adenocarcinoma of lung Code(s): C34.90 - MALIGNANT NEOPLASM OF UNSP PART OF UNSP BRONCHUS OR LUNG Status: Chronic Qualifiers: Laterality: right Qualified Code(s): C34.91 - Malignant neoplasm of unspecified part of right bronchus or lung Comment: Appears nearing end-stage process, Oncology consult, consider Palliative care (9) Malnutrition of moderate degree Code(s): E44.0 - MODERATE PROTEIN-CALORIE MALNUTRITION Status: Acute Comment : Protein calorie - Plan * Appreciate GI consult: C diff negative. No further workup. Diarrhea better. * Continue abx for LLL pneumonia seen on CXR. Sputum growing pseudomonas. Waiting on ID/Sens. * Increase nebs. Add oxygen. Steroids if no improvement. * Possible new FAIZAN lesion. Not on CT in August. Had to assess in setting of infection. * May need repeat CT, but will not change treatment. * Receiving albumin IV. Still edematous. Will stop IVF. * Renal function is better, but not at baseline yet. * Discussed with Palliative Care Provider. Discussed with Onc. Overall prognosis is poor and there are no good therapeutic options available for the cancer.
--- NOTE | 2018-10-14 13:47 | PDOC.PALCO ---
Palliative Care Consult - Consult Details Requesting Physician: [facility] Reason for Consult: advance directives assistance, assistance with communication prognosis/disease Family Members Present: , daughters Estephanie and Rosemary - Pertinent HPI Admission secondary to sepsis. COnsult for assistnace with conversation related to disease progression/trajectory and discussion of DNR status and advance directives. - Pertinent PMH Stage IV adinocarcinoma of the lung with renal metastasis. - Social History Living Situation: - Medications MAR Reviewed: Yes - Allergies Allergies/Adverse Reactions: Allergies Allergy/AdvReac Type Severity Reaction Status Date / Time codeine Allergy Intermediate Verified 10/09/18 23:31 - Subjective In hospital bed with , daughters Rosemary and Estephanie at bedside. Patient significantly breathless with accessory muscle use and pursed lip breathing. Emaciated with temporal and clavicular wasting. Oriented fully. - Objective Vital Signs: Vital Signs - Most Recent Temp Pulse Resp BP Pulse Ox 97.3 F L 93 20 109/65 95 10/14/18 07:45 10/14/18 07:45 10/14/18 07:45 10/14/18 07:45 10/14/18 07:45 Palliative Performance Scale: 40 - Physical Exam Constitutional: NAD Deviation from normal: CHronically ill appearing HEENT: EOMI Respiratory: wheezing present, tachypnea Deviation from normal: labored, accessory muscle use Gastrointestinal: soft, positive bowel sounds Deviation from normal: tympani on persuccion Musculoskeletal: edema present Deviation from normal: mildly flat affect - Problem List (1) Palliative care encounter Code(s): Z51.5 - ENCOUNTER FOR PALLIATIVE CARE Current Visit: Yes Status: Acute Comments: Initiation of discussion in relation to disease progression and impact on life. (2) Malnutrition of moderate degree Code(s): E44.0 - MODERATE PROTEIN-CALORIE MALNUTRITION Current Visit: Yes Status: Acute Comments: Patient previously on Keto Diet. Dr Archibald discussed with patient impact of diet and suggested to resume full diet. Reinforced with patient and . (3) Renal metastasis Code(s): C79.00 - SECONDARY MALIGNANT NEOPLASM OF UNSP KIDNEY AND RENAL PELVIS Current Visit: Yes Status: Chronic Qualifiers: Laterality: right Qualified Code(s): C79.01 - Secondary malignant neoplasm of right kidney and renal pelvis (4) Adenocarcinoma of lung Code(s): C34.90 - MALIGNANT NEOPLASM OF UNSP PART OF UNSP BRONCHUS OR LUNG Current Visit: No Status: Chronic Qualifiers: Laterality: right Qualified Code(s): C34.91 - Malignant neoplasm of unspecified part of right bronchus or lung Comments: Respiratory compromise related to disease progression. O2 supplementation. Discussed with Dr Gaviria use of Roxonal for symptom management of breathlessness. Will discuss with family and if agreeable will order .25mg (20mg /1ml PO PRN q 30 min) - Plan/Recommendations Plan: *O2 via [place] *Resume conversation 10/15 in relation to establishing new goals of care, currently patient open to home health. Will educate about potential of hospice and benefit of services *Discuss DNR status 10/15 *roxonal .25mg (20mg/1ml) q 30 min prn breathlessness [100] minutes spent on this encounter with >50% of the time in counseling and coordination of care. Thank you for this very appropriate consult.
[2018-10-14] MEDS ORDERED: Morphine 10 MG/0.5 ML ORAL SYRINGE SL PRN (16:00)
--- NOTE | 2018-10-14 19:57 | PRG ---
DATE OF SERVICE: 10/14/2018 SUBJECTIVE: Mr. Ley is not having diarrhea; he is having cough though. OBJECTIVE: VITAL SIGNS: Temperature is 97, pulse 93, and blood pressure 109/65. GENERAL: He is cachectic. LUNGS: He has coarse breath sounds. ABDOMEN: Soft, slightly protuberant. LABORATORY DATA: White count is 10.57, hemoglobin is 8.6, and platelet count 151. Comprehensive metabolic profile; albumin is 2, BUN is 18, and creatinine is 1.6. Microbiology showed Campylobacter. Respiratory showed presumptive Pseudomonas. Clostridium difficile toxin was negative. Chest x-ray on 10/13, showed nodular opacity of left upper lung, atelectasis, possible infiltrate at left lung base. Chronic lung changes. Diffuse interstitial prominence. ASSESSMENT: 1. Lung cancer, metastatic. It is unclear if the change in the chest related to lung cancer or pneumonia. 2. Diarrheal illness. He did show Campylobacter in the stool antigen test. This can be false-positive in this hospital. He has been responding to treatment. Diarrhea is resolving. 3. Rectal bleeding that has resolved. 4. Clostridium difficile negative. RECOMMENDATIONS: 1. Can treat for 3 days with Levaquin for the Campylobacter, then discontinue. He has been a probiotic. He is going to be on antibiotics for the respiratory illness. 2. With his metastatic lung cancer, at this point in time, we will not embark on endoscopy unless his refractory bleeding or diagnosis issues. Job ID: [id number]
[2018-10-14] MEDS: Finasteride 5 MG TAB PO SCH (20:00)
[2018-10-15] MEDS: Piperacillin/Tazobactam 2.25 GM in Sodium Chloride 0.9% 100 ML IVPB SCH ×2 (02:28→08:17)
[2018-10-15 03:57] LABS: #Basophils 0.1 thou/uL (0.0-0.2); #Eosinphils 2.1 thou/uL (0.0-0.7); #Lymphocytes 2.6 thou/uL (1.20-3.40); #Monocytes 0.8 thou/uL (0.11-0.59); #Neutrophils 6.3 thou/uL (1.40-6.50); %Basophils 0.6 % (0.0-1.0); %Eosinophils 17.9 % (0.0-10.0); %Lymphocytes 21.8 % (21.0-51.0); %Neutrophils 52.6 % (42.0-75.0); Hemoglobin 8.4 g/dL (14.0-18.0); Mean Corpuscular HGB CONC 32.7 g/dL (32.0-36.0); Mean Corpuscular Hemoglobin 28.2 pg (27.0-31.0); Mean Corpuscular Volume 86.2 fL (78.0-98.0); Mean Platelet Volume 7.8 fL (7.4-10.4); Platelet Count 159 thou/uL (130-400); RBC Distribution Width 16.2 % (11.5-14.5); Red Blood Cell (RBC) Count 2.98 mill/uL (4.70-6.10); White Blood Cell (WBC) Count 11.9 thou/uL (4.8-10.8)
[2018-10-15 04:15] LABS: ALT (SGPT) 11 U/L (8-55); AST (SGOT) 22 U/L (5-34); Alkaline Phosphatase 116 U/L (40-150); Anion Gap 8 mmol/L (10-20); BUN (Urea Nitrogen) 14 mg/dL (8.4-25.7); Bilirubin, Total 0.7 mg/dL (0.2-1.2); Calc. Creatinine Clearance 42 mL/min (70-130); Calcium 6.9 mg/dL (7.8-10.44); Carbon Dioxide 14 mmol/L (23-31); Chloride 122 mmol/L (98-107); Estimated GFR-MDRD 50; Globulin 1.9 g/dL (2.4-3.5); Glucose 81 mg/dL (83-110); Potassium 3.1 mmol/L (3.5-5.1); Protein, Total 3.9 g/dL (5.8-8.1); Sodium 141 mmol/L (136-145)
[2018-10-15] MEDS: Vancomycin HCl 1.25 GM in Sodium Chloride 0.9% 250 ML 250 ML IVPB SCH (05:20)
[2018-10-15] MEDS: Tamsulosin HCl 0.4 MG CAP PO SCH ×2 (08:18→19:26)
[2018-10-15] MEDS: Megestrol Acetate 40 MG TAB PO SCH ×3 (08:18→19:26)
[2018-10-15] MEDS: Multivitamin W/ Minerals 1 TAB PO SCH (08:18)
[2018-10-15] MEDS: Ascorbic Acid 500 mg Chewable Tablet PO SCH (08:18)
[2018-10-15] MEDS: Cyanocobalamin (Vitamin B-12) 1,000 MCG TAB PO SCH (08:18)
[2018-10-15] MEDS: hydrOXYzine 10 MG TAB PO SCH ×4 (08:18→19:26)
[2018-10-15] MEDS: Saccharomyces boulardii 250 MG CAP PO SCH (08:18)
--- NOTE | 2018-10-15 10:37 | PQF ---
DATE: 10-15-18 ATTN: DR. UBALDO SANDERS Please exercise your independent, professional judgment in responding to the clarification form. Clinical indicators are provided on the bottom of this form for your review Please check appropriate box(s) to clarify if the following diagnosis has been ruled in or ruled out: SEPSIS [ x ] Ruled in diagnosis [ x ] Continue to treat [ ] Resolved [ ] Ruled out diagnosis [ ] Other diagnosis [ ] Unable to determine In addition, please specify: Present on Admission (POA): [ x ] Yes [ ] No [ ] Unable to determine For continuity of documentation, please document condition throughout progress notes and discharge summary. Thank You. CLINICAL INDICATORS - SIGNS / SYMPTOMS / LABS: ER DX: SEPSIS, ACUTE RENAL INJURY, ANEMIA, HYPONATREMIA PN 10/10 & 15 PAO: SUSPECTED SEPSIS; PN 10/12 PANTANKAR: SUSPECTED SEPSIS. WBC: 10-10-18: 12.4 10-11-18: 11.8 10-12-18: 12.8 10-13-18: 12.2 10-15-18: 11.9 HR: 10-10-18: 102 10-12-18: 101, 103, 106 10-13-18: 104, 102 BP: 10-11-18: 79/49, 89/55 10-12-18: 82/61 RISK FACTORS: H&P: HX DIARRHEA X 2 WKS, HEMATURIA, ADENOCARCINOMA OF LUNG WITH ADRENAL METASTASES, CAD, DVT TREATMENTS: ER: NS IVF, VANCOMYCIN IV, ZOSYN IV (This form is maintained as a part of the permanent medical record) 2014 [employer] [facility]. All Rights Reserved [email or web address] Office: [phone] KANDI
--- NOTE | 2018-10-15 11:04 | PQF ---
DATE: 10-15-18 ATTN: DR. UBALDO SANDERS Please exercise your independent, professional judgment in responding to the clarification form. Clinical indicators are provided on the bottom of this form for your review Please check appropriate box(s): [ ] UTI [ ] Contaminated urine specimen without UTI [ x ] Other diagnosis Hematuria from renal metastasis [ ] Unable to determine In addition, please specify: Present on Admission (POA): [ ] Yes [ ] No [ ] Unable to determine For continuity of documentation, please document condition throughout progress notes and discharge summary. Thank You. CLINICAL INDICATORS - SIGNS / SYMPTOMS / LABS: PN 10/13 TOMMY: POSSIBLE UTI; Hx of urinary retention, continue w/ intermittent catheterization. 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 All Rights Reserved KEN [email or web address] Office: [phone] [facility] HOSPITALJulieta
[2018-10-15] MEDS ORDERED: predniSONE 20 MG TAB PO SCH (12:15)
[2018-10-15] MEDS ORDERED: methylPREDNISolone Sod Succ 40 MG VIAL IVP SCH (12:15)
[2018-10-15] MEDS: Guaifenesin DM 100-10/5 ML UDCUP PO PRN ×2 (12:41→19:25)
--- NOTE | 2018-10-15 14:38 | PDOC.PN ---
- Subjective Encounter Start Date: 10/15/18 Encounter Start Time: 11:00 Feeling a little better. Still a little SOB. Reports he and his family had a long talk with Babs and palliative care. He has decided that he would like to go home and live and eat like he wants to. They would like to consider hospice. - Objective Resuscitation Status - Order Detail: 10/09/18 22:36 Resuscitation Status Routine Resuscitation Status: FULL: Full Resuscitation Discussed with: patient Vital Signs & Weight: Vital Signs (12 hours) Temp Pulse Resp BP Pulse Ox 10/15/18 08:00 92 L 10/15/18 07:45 98.4 F 97 18 104/63 92 L Weight Admit Weight 143 lb 4.8 oz Weight 143 lb I&O: 10/14/18 10/15/18 10/16/18 06:59 06:59 06:59 Intake Total 1250 1010 Balance 1250 1010 Result Diagrams: 10/15/18 03:48 10/15/18 03:48 Phys Exam - Physical Examination Constitutional: NAD Respiratory: no wheezing Minimal scattered rales. Cardiovascular: RRR, no significant murmur Gastrointestinal: soft, non-tender, no distention, positive bowel sounds Mild R CVAT 1+ pitting edema BLE's Neurological: non-focal Psychiatric: normal affect Dx/Plan (1) Pneumonia Code(s): J18.9 - PNEUMONIA, UNSPECIFIED ORGANISM Status: Acute (2) Dehydration Code(s): E86.0 - DEHYDRATION Status: Acute (3) Pseudomonas aeruginosa infection Code(s): A49.8 - OTHER BACTERIAL INFECTIONS OF UNSPECIFIED SITE Status: Acute (4) KIESHA (acute kidney injury) Code(s): N17.9 - ACUTE KIDNEY FAILURE, UNSPECIFIED Status: Acute Comment: Suspect due to dehydration in addition to metastatic process, avoid nephrotoxic agents and limit contrast exposure, serial creatinine (5) Diarrhea Code(s): R19.7 - DIARRHEA, UNSPECIFIED Status: Acute (6) BPH with obstruction/lower urinary tract symptoms Code(s): N40.1 - BENIGN PROSTATIC HYPERPLASIA WITH LOWER URINARY TRACT SYMP; N13.8 - OTHER OBSTRUCTIVE AND REFLUX UROPATHY Status: Acute (7) Renal mass Code(s): N28.89 - OTHER SPECIFIED DISORDERS OF KIDNEY AND URETER Status: Acute (8) Adenocarcinoma of lung Code(s): C34.90 - MALIGNANT NEOPLASM OF UNSP PART OF UNSP BRONCHUS OR LUNG Status: Chronic Qualifiers: Laterality: right Qualified Code(s): C34.91 - Malignant neoplasm of unspecified part of right bronchus or lung Comment: Appears nearing end-stage process, Oncology consult, consider Palliative care (9) Malnutrition of moderate degree Code(s): E44.0 - MODERATE PROTEIN-CALORIE MALNUTRITION Status: Acute Comment : Protein calorie (10) Sepsis Code(s): A41.9 - SEPSIS, UNSPECIFIED ORGANISM Status: Acute Comment: Had infection and hypotension at admission. Was dehydrated due to diarrhea and that may have contributed. Given the pneumonia and the underlyiing cancer, treat as sepsis. - Plan * Pseudomonas is manageable with po's. * Will add some steroids. * CM consult for hospice referral. * May be able to DC tomorrow.
[2018-10-15] MEDS: Loperamide HCl 2 MG CAP PO PRN (16:23)
[2018-10-15] MEDS ORDERED: Potassium Chloride 20 MEQ TAB PO SCH (17:00)
[2018-10-15] MEDS: Finasteride 5 MG TAB PO SCH (19:26)
[2018-10-16] MEDS: Cyanocobalamin (Vitamin B-12) 1,000 MCG TAB PO SCH (09:15)
[2018-10-16] MEDS: hydrOXYzine 10 MG TAB PO SCH ×4 (09:15→20:48)
[2018-10-16] MEDS: predniSONE 20 MG TAB PO SCH (09:15)
[2018-10-16] MEDS: Saccharomyces boulardii 250 MG CAP PO SCH (09:15)
[2018-10-16] MEDS: Megestrol Acetate 40 MG TAB PO SCH ×3 (09:16→20:48)
[2018-10-16] MEDS: Ascorbic Acid 500 mg Chewable Tablet PO SCH (09:16)
[2018-10-16] MEDS: Tamsulosin HCl 0.4 MG CAP PO SCH ×2 (09:16→20:48)
[2018-10-16] MEDS: Multivitamin W/ Minerals 1 TAB PO SCH (09:16)
[2018-10-16] MEDS: Guaifenesin DM 100-10/5 ML UDCUP PO PRN ×2 (13:36→20:52)
[2018-10-16 14:44] LABS: %Neutrophils 75.2 % (42.0-75.0); Hemoglobin 8.2 g/dL (14.0-18.0); Mean Corpuscular HGB CONC 31.8 g/dL (32.0-36.0); Mean Corpuscular Hemoglobin 27.6 pg (27.0-31.0); Mean Corpuscular Volume 86.7 fL (78.0-98.0); Mean Platelet Volume 8.5 fL (7.4-10.4); Platelet Count 191 thou/uL (130-400); RBC Distribution Width 16.8 % (11.5-14.5); Red Blood Cell (RBC) Count 2.96 mill/uL (4.70-6.10); White Blood Cell (WBC) Count 11.3 thou/uL (4.8-10.8)
[2018-10-16 14:45] LABS: #Lymphocytes 2.3 thou/uL (1.20-3.40); #Monocytes 0.4 thou/uL (0.11-0.59); #Neutrophils 8.5 thou/uL (1.40-6.50); %Basophils 0.4 % (0.0-1.0); %Eosinophils 0.2 % (0.0-10.0); %Lymphocytes 20.6 % (21.0-51.0); %Monocytes 3.7 % (0.0-10.0)
[2018-10-16 15:20] LABS: Albumin 2.1 g/dL (3.4-4.8); Anion Gap 9 mmol/L (10-20); BUN (Urea Nitrogen) 17 mg/dL (8.4-25.7); Bilirubin, Total 0.4 mg/dL (0.2-1.2); Calc. Creatinine Clearance 37 mL/min (70-130); Calcium 7.5 mg/dL (7.8-10.44); Carbon Dioxide 15 mmol/L (23-31); Chloride 119 mmol/L (98-107); Estimated GFR-MDRD 43; Globulin 2.3 g/dL (2.4-3.5); Glucose 115 mg/dL (83-110); Protein, Total 4.4 g/dL (5.8-8.1); Sodium 139 mmol/L (136-145)
[2018-10-16 15:21] LABS: ALT (SGPT) 10 U/L (8-55); AST (SGOT) 20 U/L (5-34); Alkaline Phosphatase 132 U/L (40-150)
--- NOTE | 2018-10-16 20:47 | PDOC.PN ---
- Subjective Encounter Start Date: 10/16/18 Encounter Start Time: 12:30 Doing ok. Still has some cough. Ate really well today. - Objective Resuscitation Status - Order Detail: 10/09/18 22:36 Resuscitation Status Routine Resuscitation Status: FULL: Full Resuscitation Discussed with: patient Vital Signs & Weight: Vital Signs (12 hours) Temp Pulse Resp BP BP Pulse Ox 10/16/18 19:48 97.6 F 98 18 109/70 98 10/16/18 17:00 98.4 F 90 16 102/65 96 10/16/18 11:50 97 10/16/18 11:40 65 16 97 10/16/18 10:11 98 Weight Admit Weight 143 lb 4.8 oz Weight 143 lb I&O: 10/15/18 10/16/18 10/17/18 06:59 06:59 06:59 Intake Total 1010 1100 1200 Balance 1010 1100 1200 Result Diagrams: 10/16/18 05:51 10/16/18 05:51 Phys Exam - Physical Examination Constitutional: NAD Slight wheeze on left. Cardiovascular: RRR, no significant murmur Gastrointestinal: soft, non-tender, no distention Musculoskeletal: no edema 1-2+ pitting edema of the feet. Neurological: non-focal Psychiatric: normal affect, A&O x 3 Dx/Plan (1) Pneumonia Code(s): J18.9 - PNEUMONIA, UNSPECIFIED ORGANISM Status: Acute (2) Dehydration Code(s): E86.0 - DEHYDRATION Status: Acute (3) Pseudomonas aeruginosa infection Code(s): A49.8 - OTHER BACTERIAL INFECTIONS OF UNSPECIFIED SITE Status: Acute (4) KIESHA (acute kidney injury) Code(s): N17.9 - ACUTE KIDNEY FAILURE, UNSPECIFIED Status: Acute Comment: Suspect due to dehydration in addition to metastatic process, avoid nephrotoxic agents and limit contrast exposure, serial creatinine (5) Diarrhea Code(s): R19.7 - DIARRHEA, UNSPECIFIED Status: Acute (6) BPH with obstruction/lower urinary tract symptoms Code(s): N40.1 - BENIGN PROSTATIC HYPERPLASIA WITH LOWER URINARY TRACT SYMP; N13.8 - OTHER OBSTRUCTIVE AND REFLUX UROPATHY Status: Acute (7) Renal mass Code(s): N28.89 - OTHER SPECIFIED DISORDERS OF KIDNEY AND URETER Status: Acute (8) Adenocarcinoma of lung Code(s): C34.90 - MALIGNANT NEOPLASM OF UNSP PART OF UNSP BRONCHUS OR LUNG Status: Chronic Qualifiers: Laterality: right Qualified Code(s): C34.91 - Malignant neoplasm of unspecified part of right bronchus or lung Comment: Appears nearing end-stage process, Oncology consult, consider Palliative care (9) Malnutrition of moderate degree Code(s): E44.0 - MODERATE PROTEIN-CALORIE MALNUTRITION Status: Acute Comment : Protein calorie (10) Sepsis Code(s): A41.9 - SEPSIS, UNSPECIFIED ORGANISM Status: Acute Comment: Had infection and hypotension at admission. Was dehydrated due to diarrhea and that may have contributed. Given the pneumonia and the underlyiing cancer, treat as sepsis. (11) Campylobacter antigen positive Code(s): A04.5 - CAMPYLOBACTER ENTERITIS Status: Acute - Plan * Continue po abx and steroids. * Hospice setting up equipment in the home today. * Anticipate DC tomorrow. * Discussed meds, diet and activity. * Recommended he avoid the chickens at home due to the campylobacter. * He will get a neb machine from hospice.
[2018-10-16] MEDS: Finasteride 5 MG TAB PO SCH (20:48)
[2018-10-17 06:49] LABS: #Lymphocytes 2.5 thou/uL (1.20-3.40); #Monocytes 0.6 thou/uL (0.11-0.59); %Basophils 0.2 % (0.0-1.0); %Eosinophils 0.2 % (0.0-10.0); %Lymphocytes 20.6 % (21.0-51.0); %Monocytes 5.1 % (0.0-10.0); Hemoglobin 8.3 g/dL (14.0-18.0); Mean Corpuscular HGB CONC 33.1 g/dL (32.0-36.0); Mean Corpuscular Volume 87.4 fL (78.0-98.0); Platelet Count 172 thou/uL (130-400); RBC Distribution Width 16.9 % (11.5-14.5); Red Blood Cell (RBC) Count 2.88 mill/uL (4.70-6.10); White Blood Cell (WBC) Count 12.1 thou/uL (4.8-10.8)
[2018-10-17 07:18] LABS: ALT (SGPT) 12 U/L (8-55); AST (SGOT) 21 U/L (5-34); Albumin 2.1 g/dL (3.4-4.8); Alkaline Phosphatase 121 U/L (40-150); Anion Gap 10 mmol/L (10-20); BUN (Urea Nitrogen) 22 mg/dL (8.4-25.7); Bilirubin, Total 0.4 mg/dL (0.2-1.2); Calc. Creatinine Clearance 32 mL/min (70-130); Calcium 7.7 mg/dL (7.8-10.44); Carbon Dioxide 15 mmol/L (23-31); Chloride 119 mmol/L (98-107); Estimated GFR-MDRD 36; Globulin 2.4 g/dL (2.4-3.5); Glucose 90 mg/dL (83-110); Potassium 3.8 mmol/L (3.5-5.1); Protein, Total 4.5 g/dL (5.8-8.1); Sodium 140 mmol/L (136-145)
[2018-10-17 08:04] VITALS: BP 127/69; TEMP 97.3
[2018-10-17] MEDS: Saccharomyces boulardii 250 MG CAP PO SCH (08:53)
[2018-10-17] MEDS: Multivitamin W/ Minerals 1 TAB PO SCH (08:54)
[2018-10-17] MEDS: Megestrol Acetate 40 MG TAB PO SCH (08:54)
[2018-10-17] MEDS: Tamsulosin HCl 0.4 MG CAP PO SCH (08:54)
[2018-10-17] MEDS: Cyanocobalamin (Vitamin B-12) 1,000 MCG TAB PO SCH (08:55)
[2018-10-17] MEDS: predniSONE 20 MG TAB PO SCH (08:55)
[2018-10-17] MEDS: Ascorbic Acid 500 mg Chewable Tablet PO SCH (08:55)
[2018-10-17] MEDS: hydrOXYzine 10 MG TAB PO SCH (09:31)
== END 2018-10-17 11:20 | disposition hospice, home (50) | DRG 871 ==
LOC: ERS 19:31 → ONC 22:48
PROVIDERS: ADMIT Internal Medicine; ATTEND Internal Medicine
PROC: 30233N1 Transfusion of Nonautologous Red Blood Cells into Peripheral Vein, Percutaneous Approach (ICD-10-PCS; principal; 2018-10-12)
DX: A41.9 Sepsis, unspecified organism (principal); J15.1 Pneumonia due to Pseudomonas; N17.9 Acute kidney failure, unspecified; N13.8 Other obstructive and reflux uropathy; E44.0 Moderate protein-calorie malnutrition; C79.00 Secondary malignant neoplasm of unspecified kidney and renal pelvis; A04.5 Campylobacter enteritis; Z51.5 Encounter for palliative care; J44.0 Chronic obstructive pulmonary disease with (acute) lower respiratory infection; N40.1 Benign prostatic hyperplasia with lower urinary tract symptoms; I25.10 Atherosclerotic heart disease of native coronary artery without angina pectoris; I95.1 Orthostatic hypotension; E86.0 Dehydration; D64.9 Anemia, unspecified; K21.9 Gastro-esophageal reflux disease without esophagitis; D63.0 Anemia in neoplastic disease; Z68.21 Body mass index [BMI] 21.0-21.9, adult; I25.2 Old myocardial infarction; Z85.858 Personal history of malignant neoplasm of other endocrine glands; Z88.5 Allergy status to narcotic agent; Z85.118 Personal history of other malignant neoplasm of bronchus and lung; Z86.718 Personal history of other venous thrombosis and embolism; Z79.899 Other long term (current) drug therapy; Z92.21 Personal history of antineoplastic chemotherapy; Z87.440 Personal history of urinary (tract) infections
CPT/HCPCS: 36415; 36430; 71045; 74018; 80048; 80053; 80202; 81001; 82274; 82728; 83540; 83550; 83605; 83880; 84484; 85007; 85025; 85027; 86850; 86900; 86901; 87040; 87045; 87046; 87070; 87077; 87186; 87205; 87324; 87449; 87899; 94640; 94760; 96365; 96367; J1642; J1940; J2543; J2920; J3370; J3490; J7050; J7512; J7620; P9016; P9047; S0179